=== PATIENT | male | born 1950 | race African-American/Black ===

== ENCOUNTER 2016-08-17 01:07 | Inpatient (IN) | payer MEDICARE, MEDICAID ==
[2016-08-17] VITALS (7 sets, daily range): BP systolic 110–147; BP diastolic 68–95
[~2016-08-17] VITALS: Ht 180.3 cm; Wt 73.9 kg
[~2016-08-17 01:07] MED LIST: AMLO10TA2 PO; ASPI-482 PO; LISI40TA PO; LOSA50TA2 PO
--- NOTE | 2016-08-17 01:47 | PHYS DOC ---
Past Medical History Past Medical History: Hypertension, Other Additional Past Medical Histor: pituiatary brain tumor, bradycardia, cervical spinalstenosis, hemorroids. Past Surgical History: Hip Replacement, Other Additional Past Surgical Histo: laminectomy with plate fusion cervical, hernia repair Smoking: Cigarettes Alcohol Use: Sober (quit 1 month ago) Drug Use: None Adult General Chief Complaint Chief Complaint: NEURO SYMPTOMS/DEFICITS HPI HPI Patient is a 66 year old male who presents with 2 days of right-sided numbness and right hand weakness. He states symptoms have a constant baseline with fluctuating intensity. He also describes bilateral blurry vision. He states he had mild right-sided head pressure tonight with associated difficulty swallowing , but this is currently resolved. He denies dizziness, tingling, nausea or vomiting, fever or chills, diarrhea, neck pain, head trauma, falls, abnormal coordination. Review of Systems Review of Systems Constitutional: Denies fever or chills [] Eyes: Denies change in visual acuity, redness, or eye pain [] HENT: Denies nasal congestion or sore throat [] Respiratory: Denies cough or shortness of breath [] Cardiovascular: No additional information not addressed in HPI [] GI: Denies abdominal pain, nausea, vomiting, bloody stools or diarrhea [] : Denies dysuria or hematuria [] Musculoskeletal: Denies back pain or joint pain [] Integument: Denies rash or skin lesions [] Neurologic: Denies coordination changes [] Endocrine: Denies polyuria or polydipsia [] Current Medications Current Medications Current Medications Medications (Trade) Dose Ordered Sig/Alexandra Start Time Stop Time Status Last Admin Dose Admin Aspirin (Yasmin Aspirin) 325 mg 1X ONCE 08/17/16 02:45 08/17/16 02:46 UNV Allergies Allergies Allergies Coded Allergies Type Severity Reaction Last Updated Verified codeine Allergy Intermediate 05/23/15 No morphine Allergy Intermediate 05/23/15 No ciprofloxacin Adverse Reaction Intermediate facial numbness 05/23/15 No Physical Exam Physical Exam Constitutional: Well developed, well nourished, no acute distress, non-toxic appearance. [] HENT: Normocephalic, atraumatic, bilateral external ears normal, oropharynx moist, no oral exudates, nose normal. [] Eyes: PERRLA, EOMI. [] Neck: Normal range of motion, supple. [] Cardiovascular:Heart rate regular rhythm [] Lungs & Thorax: Bilateral breath sounds clear to auscultation [] Abdomen: Bowel sounds normal, soft, no tenderness. [] Skin: Warm, dry, no erythema, no rash. [] Back: No tenderness, no CVA tenderness. [] Extremities: ROM intact, no edema. [] Neurologic: Arousal - alert and cooperative, A&O x 3 Speech - regular rate, volume and tone Language: fluent and spontaneous speech CN 2: PERRL CN 3, 4, 6: EOM intact, no nystagmus CN 5: Diminished sensation on the right compared to left to light touch CN 7: No facial droop CN 8: Equal hearing to finger rub CN 9/10: Intact CN 11: Normal shoulder shrug bilaterally CN 12: Tongue midline Motor exam: Bilateral upper and lower extremities with normal tone, 5/5 strength. No pronator drift. Sensory exam: Diminished sensation on the right compared to the left to light touch Coordination: Finger to nose normal Gait: not tested. Psychologic: Affect normal, judgement normal, mood normal. [] Current Patient Data Vital Signs Vital Signs Date Time Temp Pulse Resp B/P Pulse Ox O2 Delivery O2 Flow Rate FiO2 08/17/16 01:49 62 18 142/85 100 Room Air 08/17/16 01:15 98.4 98.4 Lab Values Laboratory Tests Test 08/17/16 01:17 08/17/16 01:58 White Blood Count 12.2x10^3/uL (4.0-11.0) H Red Blood Count 4.52x10^6/uL (4.30-5.70) Hemoglobin 14.5g/dL (13.0-17.5) Hematocrit 43.6% (39.0-53.0) Mean Corpuscular Volume 97fL (79-100) Mean Corpuscular Hemoglobin 32pg (25-35) Mean Corpuscular Hemoglobin Concent 33g/dL (31-37) Red Cell Distribution Width 13.5% (11.5-14.5) Platelet Count 398x10^3/uL (140-400) Neutrophils (%) (Auto) 63% (31-73) Lymphocytes (%) (Auto) 29% (24-48) Monocytes (%) (Auto) 7% (0-9) Eosinophils (%) (Auto) 1% (0-3) Basophils (%) (Auto) 1% (0-3) Neutrophils # (Auto) 7.7x10^3uL (1.8-7.7) Lymphocytes # (Auto) 3.5x10^3/uL (1.0-4.8) Monocytes # (Auto) 0.8x10^3/uL (0.0-1.1) Eosinophils # (Auto) 0.1x10^3/uL (0.0-0.7) Basophils # (Auto) 0.1x10^3/uL (0.0-0.2) Sodium Level 136mmol/L (136-145) Potassium Level 3.6mmol/L (3.5-5.1) Chloride Level 100mmol/L (98-107) Carbon Dioxide Level 27mmol/L (21-32) Anion Gap 9 (6-14) Blood Urea Nitrogen 10mg/dL (8-26) Creatinine 1.0mg/dL (0.7-1.3) Estimated GFR (Cockcroft-Gault) 90.5 Glucose Level 143mg/dL (70-99) H Calcium Level 9.5mg/dL (8.5-10.1) Urine Opiates Screen Neg (NEG) Urine Methadone Screen Neg (NEG) Urine Barbiturates Neg (NEG) Urine Phencyclidine Screen Neg (NEG) Urine Amphetamine/Methamphetamine Neg (NEG) Urine Benzodiazepines Screen Neg (NEG) Urine Cocaine Screen Neg (NEG) Urine Cannabinoids Screen Pos (NEG) Urine Ethyl Alcohol Neg (NEG) Laboratory Tests 08/17/16 01:17 Laboratory Tests 08/17/16 01:17 EKG EKG EKG as interpreted by me as normal sinus rhythm, rate 84, no ST-T changes, normal intervals, no ectopy Radiology/Procedures Radiology/Procedures Chest xray as interpreted by me with no acute cardiopulmonary disease process Head CT without contrast IMPRESSION Soft tissue density identified in the region of the pituitary gland likely known pituitary tumor grossly appears similar to prior exam. Otherwise no acute intracranial findings. Electronically signed by: Vlad Corado (Aug 17, 2016 02:07:20) Course & Med Decision Making Course & Med Decision Making Pertinent Labs and Imaging studies reviewed. (See chart for details) Workup is unremarkable. He passed his beside swallow exam. His condition is unchanged at this time with right sensory deficit only. His NIHSS is 1. He is not a thrombolysis candidate as his symptom onset is 2 days. Will admit for concern of acute ischemic stroke. Discussed case with Dr. Serrano, who will admit. Neurology consult placed. Ramirez Disclaimer Ramirez Disclaimer This electronic medical record was generated, in whole or in part, using a voice recognition dictation system. Departure Departure Impression: Primary Impression: Numbness on right side Additional Impression: Right hand weakness Disposition: ADMITTED INPATIENT Condition: STABLE Problem Qualifiers Singh CASTRO MD Aug 17, 2016 01:47
--- NOTE | 2016-08-17 02:09 | RAD ---
Examination: CT head without contrast. HISTORY History of right-sided weakness, numbness. COMPARISON 07/03/[address] images of the head was performed without contrast. Exposure: One or more of the following dose reduction technique were utilized for this examination: 1. Automated exposure control. 2.Adjustment of MA and /or KV according to patient size. 3. Use of iterative reconstruction technique. Findings: There is no evidence of midline shift. There is no acute intracranial bleed or extra-axial fluid collection identified. The islas-white matter differentiation is maintained. Mild bilateral periventricular white matter hypodensities likely chronic small vessel ischemic disease. There is soft tissue density identified in the region of the pituitary sella measuring 3.1 x 2.4 centimeters likely known pituitary tumor. The visualized paranasal sinuses, mastoid air cells are clear. IMPRESSION Soft tissue density identified in the region of the pituitary gland likely known pituitary tumor grossly appears similar to prior exam. Otherwise no acute intracranial findings. Electronically signed by: Vlad Corado (Aug 17, 2016 02:07:20)
[2016-08-17 02:15] LABS: BARBITURATES NEG (NEG); BENZODIAZEPINES NEG (NEG); CANNABINOIDS POS (NEG); COCAINE NEG (NEG); METHADONE NEG (NEG); OPIATES NEG (NEG); PHENCYCLIDINE NEG (NEG)
[2016-08-17 02:16] LABS: BASO # 0.1 x10^3/uL (0.0-0.2); BASO % 1 % (0-3); EOS % 1 % (0-3); HEMATOCRIT 43.6 % (39.0-53.0); HEMOGLOBIN 14.5 g/dL (13.0-17.5); LYMPH # 3.5 x10^3/uL (1.0-4.8); LYMPH % 29 % (24-48); MEAN CORPUSCULAR HEMOGLOBIN 32 pg (25-35); MEAN CORPUSCULAR HGB CONC 33 g/dL (31-37); MEAN CORPUSCULAR VOLUME 97 fL (79-100); MONO % 7 % (0-9); NEUT % 63 % (31-73); PLATELET COUNT 398 x10^3/uL (140-400); RED BLOOD COUNT 4.52 x10^6/uL (4.30-5.70); RED CELL DISTRIBUTION WIDTH 13.5 % (11.5-14.5); WHITE BLOOD COUNT 12.2 x10^3/uL (4.0-11.0)
[2016-08-17 02:17] LABS: ETHANOL, URINE NEG (NEG)
[2016-08-17 02:24] LABS: CALCIUM 9.5 mg/dL (8.5-10.1); GFR 90.5; POTASSIUM 3.6 mmol/L (3.5-5.1)
[2016-08-17] MEDS ORDERED: ASPIRIN 325 MG TABLET PO ONE (02:45)
[2016-08-17] MEDS ORDERED: ONDANSETRON PF 4 MG/2 ML VIAL. IV PRN ×2 (03:00→09:30)
[2016-08-17] MEDS ORDERED: ACETAMINOPHEN 325 MG TABLET. PO PRN ×2 (03:00→09:30)
--- NOTE | 2016-08-17 06:17 | EKG ---
[facility] [address] [place] [address] Test Date: 2016-08-17 Test Time: 01:15:03 Pat Name: AMPARO CHAVIS Department: Room: [facility] Gender: M Help Desk Representative: : 1950 Requested By: Singh CASTRO Order Number: [id number] Reading MD: James Daniel Measurements Intervals [place] Rate: 84 P: 35 DC: 182 QRS: 68 QRSD: 86 T: 57 QT: 340 QTc: 405 Interpretive Statements SINUS RHYTHM Electronically Signed On 08-20-2016 10:16:05 ADMITTING REPRESENTATIVE by James Daniel
--- NOTE | 2016-08-17 07:03 | RAD ---
Indication: Chest pain. Time of exam 0131 hours. Comparison is made with prior study 04/21/2015. FINDINGS: The heart size is normal. The lungs are clear. No pleural effusion or pneumothorax is identified. The pulmonary vascularity is normal. IMPRESSION: No acute abnormality detected.
--- NOTE | 2016-08-17 09:21 | PDOC1 ---
History and Physical Past Medical History Past Medical History PAST MEDICAL HISTORY: Hypertension, questionable atrial fibrillation and 2-cm brain tumor, pituitary PAST SURGICAL HISTORY: Hernia, hemorrhoids, and cervical spine repair. PERSONAL HISTORY: Active smoker and alcohol two pints every two days or three days. Drug abuse, marijuana. CURRENT MEDICATIONS: Reviewed and reconciled.Medication reconciliation was done. SEE MRAD ALLERGIES: Codeine, morphine, and ciprofloxacin. Cardiovascular: HTN Pulmonary: No pertinent hx CENTRAL NERVOUS SYSTEM: Other GI: Hemorrhoids Heme/Onc: No pertinent hx Hepatobiliary: No pertinent hx Psych: No pertinent hx Rheumatologic: No pertinent hx Infectious disease: No pertinent hx Renal/: No pertinent hx Endocrine: No pertinent hx Past Surgical History Past Surgical History: Total hip replacement, Other Family History Family History: Coronary Artery Disease, Diabetes, Other Social History Smoke: <1 pack per day ALCOHOL: occassional Drugs: Marijuana Current Problem List Problem List Problems Medical Problems: (1) Numbness on right side Status: Acute (2) Right hand weakness Status: Acute Current Medications Current Medications Current Medications Medications (Trade) Dose Ordered Sig/Alxeandra Start Time Stop Time Status Last Admin Dose Admin Acetaminophen (Tylenol) 650 mg PRN Q4HRS PRN 08/17/16 03:00 08/18/16 02:59 Aspirin (Yasmin Aspirin) 325 mg 1X ONCE 08/17/16 02:45 08/17/16 02:46 DC 08/17/16 02:45 325 MG Ondansetron HCl (Zofran) 4 mg PRN Q8HRS PRN 08/17/16 03:00 08/18/16 02:59 Allergies Allergies Allergies Coded Allergies Type Severity Reaction Last Updated Verified codeine Allergy Intermediate 05/23/15 No morphine Allergy Intermediate 05/23/15 No ciprofloxacin Adverse Reaction Intermediate facial numbness 05/23/15 No ROS Review of System CONSTITUTIONAL: No fever or chills EYES: No recent changes SKIN: No rash or itching CARDIOVASCULAR: No chest pain, syncope, palpitations, or edema RESPIRATORY: No SOB or cough GASTROINTESTINAL: No nausea, vomiting or abdominal pain NEUROLOGICAL: headaches ENDOCRINE: No cold or heat intolerance GENITOURINARY: No urgency or frequency of urination MUSCULOSKELETAL: No back pain or joint pain LYMPHATICS: No enlarged lymph nodes PSYCHIATRIC: No anxiety or depression Physical Exam Physical Exam GEN.: No apparent distress. Alert and oriented. HEENT: Head is normocephalic, atraumatic NECK: Supple. no jvd LUNGS: Clear to auscultation. normal airflow HEART: RRR, S1, S2 present. Peripheral pulses intact ABDOMEN: Soft, nontender. Positive bowel sounds. EXTREMITIES: Without any cyanosis. NEUROLOGIC: Normal speech, normal tone PSYCHIATRIC: Normal affect, normal mood. SKIN: No ulcerations Vitals Vitals Vital Signs Date Time Temp Pulse Resp B/P Pulse Ox O2 Delivery O2 Flow Rate FiO2 08/17/16 07:00 97.9 51 18 125/71 98 Room Air 97.9 Labs Labs Laboratory Tests Test 08/17/16 01:17 08/17/16 01:58 White Blood Count 12.2x10^3/uL (4.0-11.0) Red Blood Count 4.52x10^6/uL (4.30-5.70) Hemoglobin 14.5g/dL (13.0-17.5) Hematocrit 43.6% (39.0-53.0) Mean Corpuscular Volume 97fL (79-100) Mean Corpuscular Hemoglobin 32pg (25-35) Mean Corpuscular Hemoglobin Concent 33g/dL (31-37) Red Cell Distribution Width 13.5% (11.5-14.5) Platelet Count 398x10^3/uL (140-400) Neutrophils (%) (Auto) 63% (31-73) Lymphocytes (%) (Auto) 29% (24-48) Monocytes (%) (Auto) 7% (0-9) Eosinophils (%) (Auto) 1% (0-3) Basophils (%) (Auto) 1% (0-3) Neutrophils # (Auto) 7.7x10^3uL (1.8-7.7) Lymphocytes # (Auto) 3.5x10^3/uL (1.0-4.8) Monocytes # (Auto) 0.8x10^3/uL (0.0-1.1) Eosinophils # (Auto) 0.1x10^3/uL (0.0-0.7) Basophils # (Auto) 0.1x10^3/uL (0.0-0.2) Sodium Level 136mmol/L (136-145) Potassium Level 3.6mmol/L (3.5-5.1) Chloride Level 100mmol/L (98-107) Carbon Dioxide Level 27mmol/L (21-32) Anion Gap 9 (6-14) Blood Urea Nitrogen 10mg/dL (8-26) Creatinine 1.0mg/dL (0.7-1.3) Estimated GFR (Cockcroft-Gault) 90.5 Glucose Level 143mg/dL (70-99) Calcium Level 9.5mg/dL (8.5-10.1) Urine Opiates Screen Neg (NEG) Urine Methadone Screen Neg (NEG) Urine Barbiturates Neg (NEG) Urine Phencyclidine Screen Neg (NEG) Urine Amphetamine/Methamphetamine Neg (NEG) Urine Benzodiazepines Screen Neg (NEG) Urine Cocaine Screen Neg (NEG) Urine Cannabinoids Screen Pos (NEG) Urine Ethyl Alcohol Neg (NEG) Laboratory Tests Test 08/17/16 01:17 08/17/16 01:58 White Blood Count 12.2x10^3/uL (4.0-11.0) Red Blood Count 4.52x10^6/uL (4.30-5.70) Hemoglobin 14.5g/dL (13.0-17.5) Hematocrit 43.6% (39.0-53.0) Mean Corpuscular Volume 97fL (79-100) Mean Corpuscular Hemoglobin 32pg (25-35) Mean Corpuscular Hemoglobin Concent 33g/dL (31-37) Red Cell Distribution Width 13.5% (11.5-14.5) Platelet Count 398x10^3/uL (140-400) Neutrophils (%) (Auto) 63% (31-73) Lymphocytes (%) (Auto) 29% (24-48) Monocytes (%) (Auto) 7% (0-9) Eosinophils (%) (Auto) 1% (0-3) Basophils (%) (Auto) 1% (0-3) Neutrophils # (Auto) 7.7x10^3uL (1.8-7.7) Lymphocytes # (Auto) 3.5x10^3/uL (1.0-4.8) Monocytes # (Auto) 0.8x10^3/uL (0.0-1.1) Eosinophils # (Auto) 0.1x10^3/uL (0.0-0.7) Basophils # (Auto) 0.1x10^3/uL (0.0-0.2) Sodium Level 136mmol/L (136-145) Potassium Level 3.6mmol/L (3.5-5.1) Chloride Level 100mmol/L (98-107) Carbon Dioxide Level 27mmol/L (21-32) Anion Gap 9 (6-14) Blood Urea Nitrogen 10mg/dL (8-26) Creatinine 1.0mg/dL (0.7-1.3) Estimated GFR (Cockcroft-Gault) 90.5 Glucose Level 143mg/dL (70-99) Calcium Level 9.5mg/dL (8.5-10.1) Urine Opiates Screen Neg (NEG) Urine Methadone Screen Neg (NEG) Urine Barbiturates Neg (NEG) Urine Phencyclidine Screen Neg (NEG) Urine Amphetamine/Methamphetamine Neg (NEG) Urine Benzodiazepines Screen Neg (NEG) Urine Cocaine Screen Neg (NEG) Urine Cannabinoids Screen Pos (NEG) Urine Ethyl Alcohol Neg (NEG) VTE Prophylaxis Ordered VTE Prophylaxis Devices: Yes VTE Pharmacological Prophylaxi: No FROYLAN PEACOCK MD Aug 17, 2016 09:21
[2016-08-17] MEDS ORDERED: hydrALAZINE 20 MG/ML VIAL. IVP PRN (09:30)
[2016-08-17] MEDS ORDERED: ALBUTEROL SULFATE 2.5 MG/3 ML NEBU. NEB PRN (09:30)
--- NOTE | 2016-08-17 10:06 | PDOC2 ---
ALANA DUBON ON SITE CONSTRUCTION SUPERINTENDENT 08/17/16 1006: CARDIAC CONSULT DATE OF CONSULT Date of Consult DATE: 08/17/16 TIME: 10:01 REASON FOR CONSULT Reason for Consult: palpitations REFERRING PHYSICIAN Referring Physician: Dr. Rollins SOURCE Source: Chart review, Patient HISTORY OF PRESENT ILLNESS HISTORY OF PRESENT ILLNESS This is a 66 yo male, with a h/o hypertension, who presented with complaints of right-sided numbness along with right hand weakness. Patient reports that he has recently had difficulties with bowel movements and has been constipated for the last 4-5 days. Two days ago, took Mag citrate without any relief. Had abdominal pain and pressure. [place] "disoriented and weak." Tried fleets enema. Had liquid stools but did not pass formed stool or obtain relief. Patient reports that her then developed right sided weakness along with right hand numbness and right-sided GATCIA. Patient denies any CP, palpitations, diaphoresis, or fevers. No recent orthopnea or LE edema. Had not been taking his antiHTN medications as prescribed due to feeling nauseated 2/2 constipation. Patient reports that he was able to have a significant bowel movement this morning and all symptoms have seem to have resolved. Home medications resumed and BP now well-controlled. PAST MEDICAL HISTORY Past Medical History Cardiovascular: HTN Pulmonary: No pertinent hx CENTRAL NERVOUS SYSTEM: Other (Pituitary tumor) GI: Hemorrhoids Heme/Onc: No pertinent hx Hepatobiliary: No pertinent hx Psych: No pertinent hx Musculoskeletal: Osteoarthritis, Other (cervical stenosis) Rheumatologic: No pertinent hx Infectious disease: No pertinent hx ENT: No pertinent hx Renal/: No pertinent hx Endocrine: No pertinent hx Dermatology: No pertinent hx PAST SURGICAL HISTORY Past Surgical History Total hip replacement (left), Other (hemorrhoidectomy; cervical fusion and laminectomy) FAMILY HISTORY Family History Coronary Artery Disease (brother in his 40s, daughter 40s), Diabetes (father), Other (rheumatic heart disease father) SOCIAL HISTORY Smoke: No ALCOHOL: none Drugs: Marijuana Lives: with Family CURRENT MEDICATIONS CURRENT MEDICATIONS Current Medications Medications (Trade) Dose Ordered Sig/Alexandra Route PRN Reason Start Time Stop Time Status Last Admin Dose Admin Aspirin (Yasmin Aspirin) 325 mg 1X ONCE PO 08/17/16 02:45 08/17/16 02:46 DC 08/17/16 02:45 ALLERGIES ALLERGIES: Coded Allergies: codeine (Unverified Allergy, Intermediate, 05/23/15) morphine (Unverified Allergy, Intermediate, 05/23/15) ciprofloxacin (Unverified Adverse Reaction, Intermediate, facial numbness , 05/23/15) ROS Review of System 14 point ROS conducted with pertinent positives noted above in HPI PHYSICAL EXAM General: Alert, Oriented X3, Cooperative, No acute distress HEENT: Atraumatic, Mucous membr. moist/pink Lungs: Clear to auscultation, Normal air movement Heart: Regular rate, Normal S1, Normal S2 Abdomen: Normal bowel sounds, Soft, No tenderness Extremities: No edema, Normal pulses Skin: No significant lesion Neuro: Normal speech, Sensation intact Psych/Mental Status: Mental status NL, Mood NL MUSCULOSKELETAL: Full range of motion without pain VITALS VITALS Vital Signs Date Time Temp Pulse Resp B/P Pulse Ox O2 Delivery O2 Flow Rate FiO2 08/17/16 07:00 97.9 51 18 125/71 98 Room Air 97.9 LABS Lab: Laboratory Tests Test 08/17/16 01:17 08/17/16 01:58 White Blood Count 12.2x10^3/uL (4.0-11.0) Red Blood Count 4.52x10^6/uL (4.30-5.70) Hemoglobin 14.5g/dL (13.0-17.5) Hematocrit 43.6% (39.0-53.0) Mean Corpuscular Volume 97fL (79-100) Mean Corpuscular Hemoglobin 32pg (25-35) Mean Corpuscular Hemoglobin Concent 33g/dL (31-37) Red Cell Distribution Width 13.5% (11.5-14.5) Platelet Count 398x10^3/uL (140-400) Neutrophils (%) (Auto) 63% (31-73) Lymphocytes (%) (Auto) 29% (24-48) Monocytes (%) (Auto) 7% (0-9) Eosinophils (%) (Auto) 1% (0-3) Basophils (%) (Auto) 1% (0-3) Neutrophils # (Auto) 7.7x10^3uL (1.8-7.7) Lymphocytes # (Auto) 3.5x10^3/uL (1.0-4.8) Monocytes # (Auto) 0.8x10^3/uL (0.0-1.1) Eosinophils # (Auto) 0.1x10^3/uL (0.0-0.7) Basophils # (Auto) 0.1x10^3/uL (0.0-0.2) Sodium Level 136mmol/L (136-145) Potassium Level 3.6mmol/L (3.5-5.1) Chloride Level 100mmol/L (98-107) Carbon Dioxide Level 27mmol/L (21-32) Anion Gap 9 (6-14) Blood Urea Nitrogen 10mg/dL (8-26) Creatinine 1.0mg/dL (0.7-1.3) Estimated GFR (Cockcroft-Gault) 90.5 Glucose Level 143mg/dL (70-99) Calcium Level 9.5mg/dL (8.5-10.1) Urine Opiates Screen Neg (NEG) Urine Methadone Screen Neg (NEG) Urine Barbiturates Neg (NEG) Urine Phencyclidine Screen Neg (NEG) Urine Amphetamine/Methamphetamine Neg (NEG) Urine Benzodiazepines Screen Neg (NEG) Urine Cocaine Screen Neg (NEG) Urine Cannabinoids Screen Pos (NEG) Urine Ethyl Alcohol Neg (NEG) ECHOCARDIOGRAM ECHOCARDIOGRAM <Conclusion> The left ventricle is normal size. Left ventricle systolic function is normal. The Ejection Fraction is 50-55%. There is mild concentric left ventricular hypertrophy. The interatrial septum is intact with no evidence for an atrial septal defect or patent foramen ovale as noted on 2-D or Doppler imaging. Injection of bubbles documented no interatrial shunt. There is no significant aortic valvular stenosis. Doppler and Color Flow revealed no significant aortic regurgitation. Doppler and Color Flow revealed trace mitral regurgitation. Doppler and Color Flow revealed trace tricuspid regurgitation. The PA pressure was estimated at 25 mmHg. There is no evidence of significant pericardial effusion. DATE: 04/21/15 1636 ASSESSMENT/PLAN ASSESSMENT/PLAN 1. Hypertensive heart disease 2. Right-sided numbness/weakness- resolved 3. Constipation 4. Pituitary tumor 5. Substance use Recommendations Maintain blood pressure control. Discussed importance of compliance with medications 2 Gm Na diet Neurology workup pending November discharge from a cardiac standpoint and follow up with us as needed Problems: MARIUM ASHFORD MD 08/17/16 1823: CARDIAC CONSULT ALLERGIES ALLERGIES: Coded Allergies: codeine (Unverified Allergy, Intermediate, 05/23/15) morphine (Unverified Allergy, Intermediate, 05/23/15) ciprofloxacin (Unverified Adverse Reaction, Intermediate, facial numbness , 05/23/15) ASSESSMENT/PLAN ASSESSMENT/PLAN Pt. seen and examined. Agree with above LICENSED PSYCHOLOGIST Note. 66 y.o male with atypical CVA symptoms. On exam he has normal heart tones. No significant cardiac abnormalities on objective testing. Ok to DC from CV perspective. Thx for consult. Problems: ALANA DUBON APRN Aug 17, 2016 10:06 MARIUM ASHFORD MD Aug 17, 2016 18:23
[2016-08-17] MEDS: ASPIRIN ENTERIC COATED 81 MG TABLET.DR. PO SCH (10:47)
[2016-08-17] MEDS: AMLODIPINE BESYLATE 10 MG TABLET PO SCH (10:48)
[2016-08-17] MEDS: LISINOPRIL 40 MG TABLET. PO SCH (10:49)
[2016-08-17] MEDS ORDERED: INFLUENZA VAX SCREEN BY RX. MC PRN (12:00)
[2016-08-17] MEDS ORDERED: FLU VACC QUAD 2016-17 (36MOS+)/PF 0.5 ML SYRINGE. VAX IM ONE (14:00)
--- NOTE | 2016-08-17 14:52 | PDOC2 ---
NEUROLOGY CONSULT Date of Admission Date of Admission DATE: 08/17/16 TIME: 14:40 Reason for Consult Reason for Consult: IMPRESSION: Right side numbness and weakness x 1 day Blurred vision x 1 day Difficult swallow x 1 day Pituitary tumor. HTN Cannabinoids in system RECOMMENDATIONS/PLAN: Brain MRI w/wo contrast. ASA daily. Carotid a US + Doppler. Echo Fasting lipid panel. HISTORY OF THE PRESENT ILLNESS: 66-y-old AA male patient with above medicla diseases developed symptoms of blurred vision, right UE weakness and numbness and difficult swallow for 1 days before coming to the ER of [facility]. His symptoms improved but still persistent. His HCT suggested a pituitary tumor. No seizures. PAST MEDICAL HISTORY: Please see above. PAST SURGERY HISTORY: C-spine laminectomy and fusion. Hip replacement. ALLERGY: Unknown MEDICATIONS: Refer to [facility] FAMILY HISTORY: CAD DM SOCIAL HISTORY: Denies illicit drug use, but cannabinoids positive in system REVIEW OF SYSTEMS: Constitutional: No malnutrition, weight loss, cachexia. Head: No traumatic brain or head injury. Skin: No edema, or rash. Ear: No infection, tinnitus. Eyes: No vision loss or color blindness. Nose: No bleeding or purulent discharges. Hearing: No hearing decrease. Neck: No injury. Cardiac: HTN, HLD. Pulmonary: No COPD. GI: No GI ulcer, GI bleeding. Urinary/genital: UTI. Endocrinologic: No cousin face, craniofacial dysmorphism, polydactyly, goiter. Skeletomuscular: No muscular atrophy, deformity. Neurological: see HP. Psychiatric: marijuana. Otherwise, not [id number] review of systems. PHYSICAL EXAMINATION: General appearance is in subacute distress. HEENT: Normocephalic and nontraumatic. Eyes, nose, ears, and throat are unremarkable. Neck is supple. No lymphadenopathy. No bruits are heard over the carotid artery. No crepitus. Cardiovascular: S1, S2, regular rate and rhythm. Pulmonary: Clear to auscultation bilaterally. Abdomen: Bowel sounds are positive. Abdomen is soft, nontender, and nondistended. Extremities: No rash, lesions, or edema. No restriction of range of motion NEUROLOGICAL EXAMINATION: Awake. Oriented to time, place and person. PERRL. EOMI. CN: no focal findings. Muscle tone: within normal. Muscle strength: 5 DTR: 2 Plantar reflex: Flexor response bilaterally Gait: not examined in bed. Sensory exam: no abnormal findings. No acute cerebellar signs elicited. F-T-N test fine. Current Medications Current Medications Current Medications Aspirin (Yasmin Aspirin) 325 mg 1X ONCE PO Last administered on 08/17/16 02:45 ; Start 08/17/16 at 02:45; Stop 08/17/16 at 02:46; Status DC Ondansetron HCl (Zofran) 4 mg PRN Q8HRS PRN IV NAUSEA/VOMITING; Start 08/17/16 at 03:00; Stop 08/18/16 at 02:59 Acetaminophen (Tylenol) 650 mg PRN Q4HRS PRN PO FEVER; Start 08/17/16 at 03:00 ; Stop 08/18/16 at 02:59 Acetaminophen (Tylenol) 325 mg PRN Q6HRS PRN PO MILD PAIN / TEMP; Start at 09:30 Hydralazine HCl (Apresoline) 10 mg PRN Q4HRS PRN IVP ELEVATED BP, SEE COMMENTS ; Start 08/17/16 at 09:30 Ondansetron HCl (Zofran) 4 mg PRN Q8HRS PRN IV NAUSEA/VOMITING; Start 08/17/16 at 09:30 Albuterol Sulfate (Ventolin Neb Soln) 2.5 mg PRN Q4HRS PRN NEB SHORTNESS OF BREATH; Start 08/17/16 at 09:30 Amlodipine Besylate (Norvasc) 10 mg DAILY PO Last administered on 08/17/16 10: 48; Start 08/17/16 at 11:00 Aspirin (Ecotrin) 81 mg DAILY PO Last administered on 08/17/16 10:47; Start at 11:00 Lisinopril (Prinivil) 40 mg DAILY PO Last administered on 08/17/16 10:49; Start 08/17/16 at 11:00 Info (Do NOT chart on this placeholder) 1 each PRN 1X PRN MC SEE COMMENTS; Start 08/17/16 at 12:00; Status UNV Influenza Virus Vaccine Quadrival (Fluarix Quad [id number] Syringe) 0.5 ml ONCE ONCE VAX IM ; Start 08/17/16 at 14:00; Stop 08/17/16 at 14:01; Status DC Active Scripts Active Aspir 81 (Aspirin) 81 Mg Tablet.dr 1 Tab PO DAILY Amlodipine Besylate 10 Mg Tablet 10 Mg PO DAILY Reported Lisinopril 40 Mg Tablet 1 Tab PO DAILY Allergies Allergies: Coded Allergies: codeine (Unverified Allergy, Intermediate, 05/23/15) morphine (Unverified Allergy, Intermediate, 05/23/15) ciprofloxacin (Unverified Adverse Reaction, Intermediate, facial numbness , 05/23/15) Vitals VITALS Vital Signs Date Time Temp Pulse Resp B/P Pulse Ox O2 Delivery O2 Flow Rate FiO2 08/17/16 11:00 97.5 53 16 110/69 97 97.5 08/17/16 08:27 Room Air Labs Labs Laboratory Tests Test 08/17/16 01:17 08/17/16 01:58 White Blood Count 12.2x10^3/uL (4.0-11.0) Red Blood Count 4.52x10^6/uL (4.30-5.70) Hemoglobin 14.5g/dL (13.0-17.5) Hematocrit 43.6% (39.0-53.0) Mean Corpuscular Volume 97fL (79-100) Mean Corpuscular Hemoglobin 32pg (25-35) Mean Corpuscular Hemoglobin Concent 33g/dL (31-37) Red Cell Distribution Width 13.5% (11.5-14.5) Platelet Count 398x10^3/uL (140-400) Neutrophils (%) (Auto) 63% (31-73) Lymphocytes (%) (Auto) 29% (24-48) Monocytes (%) (Auto) 7% (0-9) Eosinophils (%) (Auto) 1% (0-3) Basophils (%) (Auto) 1% (0-3) Neutrophils # (Auto) 7.7x10^3uL (1.8-7.7) Lymphocytes # (Auto) 3.5x10^3/uL (1.0-4.8) Monocytes # (Auto) 0.8x10^3/uL (0.0-1.1) Eosinophils # (Auto) 0.1x10^3/uL (0.0-0.7) Basophils # (Auto) 0.1x10^3/uL (0.0-0.2) Sodium Level 136mmol/L (136-145) Potassium Level 3.6mmol/L (3.5-5.1) Chloride Level 100mmol/L (98-107) Carbon Dioxide Level 27mmol/L (21-32) Anion Gap 9 (6-14) Blood Urea Nitrogen 10mg/dL (8-26) Creatinine 1.0mg/dL (0.7-1.3) Estimated GFR (Cockcroft-Gault) 90.5 Glucose Level 143mg/dL (70-99) Calcium Level 9.5mg/dL (8.5-10.1) Urine Opiates Screen Neg (NEG) Urine Methadone Screen Neg (NEG) Urine Barbiturates Neg (NEG) Urine Phencyclidine Screen Neg (NEG) Urine Amphetamine/Methamphetamine Neg (NEG) Urine Benzodiazepines Screen Neg (NEG) Urine Cocaine Screen Neg (NEG) Urine Cannabinoids Screen Pos (NEG) Urine Ethyl Alcohol Neg (NEG) Laboratory Tests Test 08/17/16 01:17 08/17/16 01:58 White Blood Count 12.2x10^3/uL (4.0-11.0) Red Blood Count 4.52x10^6/uL (4.30-5.70) Hemoglobin 14.5g/dL (13.0-17.5) Hematocrit 43.6% (39.0-53.0) Mean Corpuscular Volume 97fL (79-100) Mean Corpuscular Hemoglobin 32pg (25-35) Mean Corpuscular Hemoglobin Concent 33g/dL (31-37) Red Cell Distribution Width 13.5% (11.5-14.5) Platelet Count 398x10^3/uL (140-400) Neutrophils (%) (Auto) 63% (31-73) Lymphocytes (%) (Auto) 29% (24-48) Monocytes (%) (Auto) 7% (0-9) Eosinophils (%) (Auto) 1% (0-3) Basophils (%) (Auto) 1% (0-3) Neutrophils # (Auto) 7.7x10^3uL (1.8-7.7) Lymphocytes # (Auto) 3.5x10^3/uL (1.0-4.8) Monocytes # (Auto) 0.8x10^3/uL (0.0-1.1) Eosinophils # (Auto) 0.1x10^3/uL (0.0-0.7) Basophils # (Auto) 0.1x10^3/uL (0.0-0.2) Sodium Level 136mmol/L (136-145) Potassium Level 3.6mmol/L (3.5-5.1) Chloride Level 100mmol/L (98-107) Carbon Dioxide Level 27mmol/L (21-32) Anion Gap 9 (6-14) Blood Urea Nitrogen 10mg/dL (8-26) Creatinine 1.0mg/dL (0.7-1.3) Estimated GFR (Cockcroft-Gault) 90.5 Glucose Level 143mg/dL (70-99) Calcium Level 9.5mg/dL (8.5-10.1) Urine Opiates Screen Neg (NEG) Urine Methadone Screen Neg (NEG) Urine Barbiturates Neg (NEG) Urine Phencyclidine Screen Neg (NEG) Urine Amphetamine/Methamphetamine Neg (NEG) Urine Benzodiazepines Screen Neg (NEG) Urine Cocaine Screen Neg (NEG) Urine Cannabinoids Screen Pos (NEG) Urine Ethyl Alcohol Neg (NEG) DAT FALK MD Aug 17, 2016 14:52
[2016-08-17 16:42] LABS: ALBUMIN 3.1 g/dL (3.4-5.0); CALCIUM 9.2 mg/dL (8.5-10.1); CREATININE 0.9 mg/dL (0.7-1.3); GFR 102.2; PHOSPHORUS 3.1 mg/dL (2.6-4.7); POTASSIUM 4.3 mmol/L (3.5-5.1)
[2016-08-17 16:57] LABS: FREE T4 0.95 ng/dL (0.76-1.46)
[2016-08-17] MEDS ORDERED: GADOBUTROL 7.5 MMOL/7.5 ML VIAL IV ONE (17:45)
--- NOTE | 2016-08-17 18:05 | HP ---
ADMIT DATE: 08/17/2016 CHIEF COMPLAINT: Right upper extremity, lower extremity numbness. HISTORY OF PRESENT ILLNESS: A 66-year-old -[place] male patient with prior history of hypertension, pituitary brain mass around 2 cm, presented to the ER with complaints of 2-day history of numbness in the right upper extremity and also he had intractable nausea, noted to have some blurry of vision. The patient denies any noncompliance with medications. His symptoms improved upon arrival to the floor. He denies any chest pain, shortness of breath, however, he has complaints of some palpitations for nearly 1-2 weeks. He is noticing increased racing of his heart, which has been sometimes regular and sometimes irregular. Today, he denies any symptoms such as palpitations, chest pain or shortness of breath. At the time of my examination, he is very comfortable. PAST MEDICAL HISTORY: Hypertension, pituitary tumor, bradycardia, cervical spinal stenosis, hip replacement, laminectomy. PERSONAL HISTORY: The patient smokes less than a pack a day. No alcohol abuse. No drug abuse. FAMILY HISTORY: Coronary artery disease. REVIEW OF SYSTEMS AND PHYSICAL EXAMINATION: Please see my electronic H and P. LABORATORY DATA: Sodium 136, potassium 3.6, chloride 100, carbon dioxide 27, gap is 9, BUN is 10, creatinine 1. Hematology: WBC 12.2, hemoglobin is 14.5, MCV 97, platelets 398. Toxicology: Opioids negative, bilirubin negative. Urine cannabinoids positive. IMAGING STUDIES: Chest x-ray: No acute abnormality noted. Head CT: Soft tissue density identified in the region of the pituitary gland, likely known pituitary tumor, grossly appears similar to prior exam, otherwise is no acute intracranial findings. PLAN: 1. At the time of examination, the patient's blood pressures were systolic more than 200, however, the patient denies any noncompliance with medications. At the time of my examination, his blood pressure is back to normal, however, he is having episodes of bradycardia which is asymptomatic. I will consult cardiology and given his pituitary mass, we will order some basic labs such as TSH, free T4 PTH, renal panel, ACTH and bilateral renal duplex ultrasound and prolactin levels. 2. I will consult neurosurgery for further recommendations as patient is complaining of some blurring of vision. 3. I will resume his home medications and p.r.n. hydralazine for blood pressure. 4. The patient has been educated about compliance and dietary restrictions for hypertension. 5. No DVT prophylaxis as the patient is actively mobile. FROYLAN PEACOCK MD DR: OMID/satinder JOB#: [id number] / [id number] MARNI
[2016-08-18 03:08] VITALS: BP 117/68
[2016-08-18 06:47] LABS: BASO % 1 % (0-3); EOS % 2 % (0-3); HEMATOCRIT 39.6 % (39.0-53.0); HEMOGLOBIN 13.2 g/dL (13.0-17.5); LYMPH # 2.3 x10^3/uL (1.0-4.8); LYMPH % 34 % (24-48); MEAN CORPUSCULAR HEMOGLOBIN 32 pg (25-35); MEAN CORPUSCULAR HGB CONC 33 g/dL (31-37); MEAN CORPUSCULAR VOLUME 95 fL (79-100); MONO % 8 % (0-9); NEUT % 57 % (31-73); PLATELET COUNT 383 x10^3/uL (140-400); RED BLOOD COUNT 4.18 x10^6/uL (4.30-5.70); RED CELL DISTRIBUTION WIDTH 13.6 % (11.5-14.5); WHITE BLOOD COUNT 6.7 x10^3/uL (4.0-11.0)
[2016-08-18 06:57] LABS: CALCIUM 9.1 mg/dL (8.5-10.1); CREATININE 0.8 mg/dL (0.7-1.3); POTASSIUM 4.4 mmol/L (3.5-5.1)
[2016-08-18 07:00] VITALS: BP 130/87
[2016-08-18] MEDS: ASPIRIN ENTERIC COATED 81 MG TABLET.DR. PO SCH (08:22)
[2016-08-18] MEDS: AMLODIPINE BESYLATE 10 MG TABLET PO SCH (08:23)
[2016-08-18] MEDS: LISINOPRIL 40 MG TABLET. PO SCH (08:24)
--- NOTE | 2016-08-18 08:49 | RAD ---
EXAM: Grayscale and color Doppler renal artery sonogram. HISTORY: Hypertension. TECHNIQUE: Grayscale and color Doppler sonographic imaging of the renal arteries with spectral waveform analysis was performed. COMPARISON: None. FINDINGS: The right kidney measures 9.6 cm [id number] and the left kidney measures 10.6 cm [id number]. There is no hydronephrosis. There is a 3.5 cm hypoechoic lesion along the superior aspect of the right kidney. The bladder is not assessed. The peak systolic velocities within the proximal, mid and distal right renal artery are 155 cm/s, 98 cm/s, and 90 cm/s, respectively. There are normal right renal artery to aorta velocity ratios. The peak systolic velocities within the proximal, mid and distal left renal artery are 356 cm/s, 304 cm/s, and 75 cm/s, respectively. There is an elevated left renal artery to aorta velocity ratio of 6.72. The bilateral renal veins are patent. The aorta is normal in caliber. IMPRESSION: 1. Elevated peak systolic velocities within the proximal and mid left renal artery, a component of which may be due to vessel tortuosity. This suggests greater than 60% stenosis. 2. No Doppler evidence of hemodynamically significant stenosis within the right renal artery. 3. 3.5 cm hypoechoic lesion superior to the right kidney, likely representing the right adrenal nodule demonstrated on a CT dated 07/03/2015. The left adrenal nodule is not seen sonographically. Please refer to the prior CT for characterization.
[2016-08-18 09:15] LABS: PROLACTIN 14.5 ng/mL (4.0-15.2)
--- NOTE | 2016-08-18 09:58 | RAD ---
EXAM: Brain MRI with and without contrast. HISTORY: Right sided numbness and weakness. TECHNIQUE: Multiplanar and multisequence magnetic resonance imaging of the brain was performed prior to and following the administration of 7.5 cc Gadovist intravenous contrast. COMPARISON: Head CT dated 08/17/2016] MRI dated 04/25/2010. FINDINGS: There is no restricted diffusion to suggest acute or subacute infarction. There is no susceptibility effect to suggest hemorrhage. There is a tiny focus of subtle septal effect within the right basal ganglia likely due to calcification. There is no mass effect or midline shift. There is no hydrocephalus. There are a few scattered focal areas of T2/FLAIR hyperintensity within the cerebral white matter and sulma, a nonspecific finding likely due to chronic small vessel disease. The orbits and paranasal sinuses are unremarkable. There is a small amount of fluid within the bilateral mastoid air cells. There is an enhancing sellar and suprasellar mass and enhancement of a thickened rightward deviated infundibulum. This mass measures 3.2 cm craniocaudally x 1.9 cm transversely x 2.0 cm anteroposteriorly. This mass extends into the left greater than right cavernous sinuses to abut the right cavernous ICA and partially encase the left ICA. These vessels maintain normal flow voids. There is superior deviation of the optic chiasm. There is instrumented fusion at the proximal cervical levels. IMPRESSION: 1. Large enhancing sellar and suprasellar mass extending to the left greater than right cavernous sinuses and resulting in deviation of a thickened enhancing infundibulum and optic chiasm. The imaging appearance favors a pituitary macroadenoma rather than alternative lesion such as a craniopharyngioma. Dedicated pituitary protocol MRI can be performed for better characterization. 2. Few scattered focal areas of signal change within the cerebral white matter and sulma, likely due to chronic small vessel disease.
--- NOTE | 2016-08-18 10:38 | PDOC ---
PROGRESS NOTES Chief Complaint Chief Complaint CC: right arm tingling A/P HTN urgency better. Left arm tinging resolved Adneral tumor 3cm incidental, right Macroadenoma pituitary 3 cm Plan IV Decadron q6hrs BP controlled NS consult pending, d/w Neurology, Renal duplex US resutls reviewed Consult Nephrology labs reviwed Echo old 2014 normal EF D/W Pt in details about all the test results, all questions answered, History of Present Illness History of Present Illness no fever no chills tingling in right upper extremities. Vitals Vitals Vital Signs Date Time Temp Pulse Resp B/P Pulse Ox O2 Delivery O2 Flow Rate FiO2 08/18/16 08:24 65 130/87 08/18/16 08:00 Room Air 08/18/16 07:00 97.7 18 100 97.7 Physical Exam General: Alert, Oriented X3, Cooperative, No acute distress Heart: Regular rate, Normal S1, Normal S2 Lungs: Clear, Wheezing Abdomen: Normal bowel sounds, Soft, No tenderness Extremities: No edema, Normal pulses Skin: No significant lesion Labs LABS Laboratory Tests Test 08/17/16 15:40 08/18/16 05:34 Sodium Level 141mmol/L (136-145) 141mmol/L (136-145) Potassium Level 4.3mmol/L (3.5-5.1) 4.4mmol/L (3.5-5.1) Chloride Level 106mmol/L (98-107) 104mmol/L (98-107) Carbon Dioxide Level 27mmol/L (21-32) 27mmol/L (21-32) Anion Gap 8 (6-14) 10 (6-14) Blood Urea Nitrogen 11mg/dL (8-26) 11mg/dL (8-26) Creatinine 0.9mg/dL (0.7-1.3) 0.8mg/dL (0.7-1.3) Estimated GFR (Cockcroft-Gault) 102.2 117.0 Glucose Level 97mg/dL (70-99) 84mg/dL (70-99) Calcium Level 9.2mg/dL (8.5-10.1) 9.1mg/dL (8.5-10.1) Ionized Calcium 1.22mmol/L (1.13-1.32) Phosphorus Level 3.1mg/dL (2.6-4.7) Albumin 3.1g/dL (3.4-5.0) Thyroid Stimulating Hormone (TSH) 1.315uIU/mL (0.358-3.74) Free Thyroxine 0.95ng/dL (0.76-1.46) Prolactin 14.5ng/mL (4.0-15.2) White Blood Count 6.7x10^3/uL (4.0-11.0) Red Blood Count 4.18x10^6/uL (4.30-5.70) Hemoglobin 13.2g/dL (13.0-17.5) Hematocrit 39.6% (39.0-53.0) Mean Corpuscular Volume 95fL (79-100) Mean Corpuscular Hemoglobin 32pg (25-35) Mean Corpuscular Hemoglobin Concent 33g/dL (31-37) Red Cell Distribution Width 13.6% (11.5-14.5) Platelet Count 383x10^3/uL (140-400) Neutrophils (%) (Auto) 57% (31-73) Lymphocytes (%) (Auto) 34% (24-48) Monocytes (%) (Auto) 8% (0-9) Eosinophils (%) (Auto) 2% (0-3) Basophils (%) (Auto) 1% (0-3) Neutrophils # (Auto) 3.8x10^3uL (1.8-7.7) Lymphocytes # (Auto) 2.3x10^3/uL (1.0-4.8) Monocytes # (Auto) 0.5x10^3/uL (0.0-1.1) Eosinophils # (Auto) 0.1x10^3/uL (0.0-0.7) Basophils # (Auto) 0.0x10^3/uL (0.0-0.2) Assessment and Plan Assessmemt and Plan Problems Medical Problems: (1) Numbness on right side Status: Acute (2) Right hand weakness Status: Acute Problems: Comment Review of Relevant I have reviewed the following items brent (where applicable) has been applied. Labs Laboratory Tests Test 08/17/16 01:17 08/17/16 01:58 08/17/16 15:40 08/18/16 05:34 White Blood Count 12.2x10^3/uL (4.0-11.0) 6.7x10^3/uL (4.0-11.0) Red Blood Count 4.52x10^6/uL (4.30-5.70) 4.18x10^6/uL (4.30-5.70) Hemoglobin 14.5g/dL (13.0-17.5) 13.2g/dL (13.0-17.5) Hematocrit 43.6% (39.0-53.0) 39.6% (39.0-53.0) Mean Corpuscular Volume 97fL (79-100) 95fL (79-100) Mean Corpuscular Hemoglobin 32pg (25-35) 32pg (25-35) Mean Corpuscular Hemoglobin Concent 33g/dL (31-37) 33g/dL (31-37) Red Cell Distribution Width 13.5% (11.5-14.5) 13.6% (11.5-14.5) Platelet Count 398x10^3/uL (140-400) 383x10^3/uL (140-400) Neutrophils (%) (Auto) 63% (31-73) 57% (31-73) Lymphocytes (%) (Auto) 29% (24-48) 34% (24-48) Monocytes (%) (Auto) 7% (0-9) 8% (0-9) Eosinophils (%) (Auto) 1% (0-3) 2% (0-3) Basophils (%) (Auto) 1% (0-3) 1% (0-3) Neutrophils # (Auto) 7.7x10^3uL (1.8-7.7) 3.8x10^3uL (1.8-7.7) Lymphocytes # (Auto) 3.5x10^3/uL (1.0-4.8) 2.3x10^3/uL (1.0-4.8) Monocytes # (Auto) 0.8x10^3/uL (0.0-1.1) 0.5x10^3/uL (0.0-1.1) Eosinophils # (Auto) 0.1x10^3/uL (0.0-0.7) 0.1x10^3/uL (0.0-0.7) Basophils # (Auto) 0.1x10^3/uL (0.0-0.2) 0.0x10^3/uL (0.0-0.2) Sodium Level 136mmol/L (136-145) 141mmol/L (136-145) 141mmol/L (136-145) Potassium Level 3.6mmol/L (3.5-5.1) 4.3mmol/L (3.5-5.1) 4.4mmol/L (3.5-5.1) Chloride Level 100mmol/L (98-107) 106mmol/L (98-107) 104mmol/L (98-107) Carbon Dioxide Level 27mmol/L (21-32) 27mmol/L (21-32) 27mmol/L (21-32) Anion Gap 9 (6-14) 8 (6-14) 10 (6-14) Blood Urea Nitrogen 10mg/dL (8-26) 11mg/dL (8-26) 11mg/dL (8-26) Creatinine 1.0mg/dL (0.7-1.3) 0.9mg/dL (0.7-1.3) 0.8mg/dL (0.7-1.3) Estimated GFR (Cockcroft-Gault) 90.5 102.2 117.0 Glucose Level 143mg/dL (70-99) 97mg/dL (70-99) 84mg/dL (70-99) Calcium Level 9.5mg/dL (8.5-10.1) 9.2mg/dL (8.5-10.1) 9.1mg/dL (8.5-10.1) Urine Opiates Screen Neg (NEG) Urine Methadone Screen Neg (NEG) Urine Barbiturates Neg (NEG) Urine Phencyclidine Screen Neg (NEG) Urine Amphetamine/Methamphetamine Neg (NEG) Urine Benzodiazepines Screen Neg (NEG) Urine Cocaine Screen Neg (NEG) Urine Cannabinoids Screen Pos (NEG) Urine Ethyl Alcohol Neg (NEG) Ionized Calcium 1.22mmol/L (1.13-1.32) Phosphorus Level 3.1mg/dL (2.6-4.7) Albumin 3.1g/dL (3.4-5.0) Thyroid Stimulating Hormone (TSH) 1.315uIU/mL (0.358-3.74) Free Thyroxine 0.95ng/dL (0.76-1.46) Prolactin 14.5ng/mL (4.0-15.2) Laboratory Tests Test 08/17/16 15:40 08/18/16 05:34 Sodium Level 141mmol/L (136-145) 141mmol/L (136-145) Potassium Level 4.3mmol/L (3.5-5.1) 4.4mmol/L (3.5-5.1) Chloride Level 106mmol/L (98-107) 104mmol/L (98-107) Carbon Dioxide Level 27mmol/L (21-32) 27mmol/L (21-32) Anion Gap 8 (6-14) 10 (6-14) Blood Urea Nitrogen 11mg/dL (8-26) 11mg/dL (8-26) Creatinine 0.9mg/dL (0.7-1.3) 0.8mg/dL (0.7-1.3) Estimated GFR (Cockcroft-Gault) 102.2 117.0 Glucose Level 97mg/dL (70-99) 84mg/dL (70-99) Calcium Level 9.2mg/dL (8.5-10.1) 9.1mg/dL (8.5-10.1) Ionized Calcium 1.22mmol/L (1.13-1.32) Phosphorus Level 3.1mg/dL (2.6-4.7) Albumin 3.1g/dL (3.4-5.0) Thyroid Stimulating Hormone (TSH) 1.315uIU/mL (0.358-3.74) Free Thyroxine 0.95ng/dL (0.76-1.46) Prolactin 14.5ng/mL (4.0-15.2) White Blood Count 6.7x10^3/uL (4.0-11.0) Red Blood Count 4.18x10^6/uL (4.30-5.70) Hemoglobin 13.2g/dL (13.0-17.5) Hematocrit 39.6% (39.0-53.0) Mean Corpuscular Volume 95fL (79-100) Mean Corpuscular Hemoglobin 32pg (25-35) Mean Corpuscular Hemoglobin Concent 33g/dL (31-37) Red Cell Distribution Width 13.6% (11.5-14.5) Platelet Count 383x10^3/uL (140-400) Neutrophils (%) (Auto) 57% (31-73) Lymphocytes (%) (Auto) 34% (24-48) Monocytes (%) (Auto) 8% (0-9) Eosinophils (%) (Auto) 2% (0-3) Basophils (%) (Auto) 1% (0-3) Neutrophils # (Auto) 3.8x10^3uL (1.8-7.7) Lymphocytes # (Auto) 2.3x10^3/uL (1.0-4.8) Monocytes # (Auto) 0.5x10^3/uL (0.0-1.1) Eosinophils # (Auto) 0.1x10^3/uL (0.0-0.7) Basophils # (Auto) 0.0x10^3/uL (0.0-0.2) Medications Current Medications Aspirin (Yasmin Aspirin) 325 mg 1X ONCE PO Last administered on 08/17/16t 02:45 ; Start 08/17/16 at 02:45; Stop 08/17/16 at 02:46; Status DC Ondansetron HCl (Zofran) 4 mg PRN Q8HRS PRN IV NAUSEA/VOMITING; Start 08/17/16 at 03:00; Stop 08/18/16 at 02:59; Status DC Acetaminophen (Tylenol) 650 mg PRN Q4HRS PRN PO FEVER; Start 08/17/16 at 03:00 ; Stop 08/18/16 at 02:59; Status DC Acetaminophen (Tylenol) 325 mg PRN Q6HRS PRN PO MILD PAIN / TEMP; Start at 09:30 Hydralazine HCl (Apresoline) 10 mg PRN Q4HRS PRN IVP ELEVATED BP, SEE COMMENTS ; Start 08/17/16 at 09:30 Ondansetron HCl (Zofran) 4 mg PRN Q8HRS PRN IV NAUSEA/VOMITING; Start 08/17/16 at 09:30 Albuterol Sulfate (Ventolin Neb Soln) 2.5 mg PRN Q4HRS PRN NEB SHORTNESS OF BREATH; Start 08/17/16 at 09:30 Amlodipine Besylate (Norvasc) 10 mg DAILY PO Last administered on 08/18/16 08: 23; Start 08/17/16 at 11:00 Aspirin (Ecotrin) 81 mg DAILY PO Last administered on 08/18/16 08:22; Start at 11:00 Lisinopril (Prinivil) 40 mg DAILY PO Last administered on 08/18/16 08:24; Start 08/17/16 at 11:00 Info (Do NOT chart on this placeholder) 1 each PRN 1X PRN MC SEE COMMENTS; Start 08/17/16 at 12:00; Status UNV Influenza Virus Vaccine Quadrival (Fluarix Quad 1107-5999 Syringe) 0.5 ml ONCE ONCE VAX IM Last administered on 08/17/16 21:51; Start 08/17/16 at 14:00; Stop 08/17/16 at 14:01; Status DC Gadobutrol (Gadavist) 7.5 mmol 1X ONCE IV Last administered on 08/17/16 17:45 ; Start 08/17/16 at 17:45; Stop 08/17/16 at 17:46; Status DC Active Scripts Active Aspir 81 (Aspirin) 81 Mg Tablet. 1 Tab PO DAILY Amlodipine Besylate 10 Mg Tablet 10 Mg PO DAILY Reported Lisinopril 40 Mg Tablet 1 Tab PO DAILY Vitals/I & O Vital Sign - Last 24 Hours 08/17/16 08/17/16 08/17/16 08/17/16 10:48 10:49 11:00 15:00 Temp 97.5 97.5 97.5 97.5 Pulse 74 74 53 52 Resp 16 16 B/P 125/71 125/71 110/69 126/75 Pulse Ox 97 100 08/17/16 08/17/16 08/17/16 08/18/16 20:00 20:26 23:04 03:08 Temp 97.9 98.8 97.9 97.9 98.8 97.9 Pulse 51 52 48 Resp 20 20 20 B/P 121/68 144/73 117/68 Pulse Ox 100 99 100 O2 Delivery Room Air Room Air Room Air Room Air 08/18/16 08/18/16 08/18/16 08/18/16 07:00 08:00 08:23 08:24 Temp 97.7 97.7 Pulse 65 65 65 Resp 18 B/P 130/87 130/87 130/87 Pulse Ox 100 O2 Delivery Room Air Room Air Intake and Output 08/17/16 08/17/16 08/18/16 15:00 23:00 07:00 Intake Total 330 ml Output Total 250 ml 250 ml Balance -250 ml 80 ml FROYLAN PEACOCK MD Aug 18, 2016 10:38
[2016-08-18 11:00] VITALS: BP 145/75
[2016-08-18 14:52] VITALS: BP 137/78
[2016-08-18 15:14] LABS: PTH INTACT 36 pg/mL (15-65)
[2016-08-18] MEDS: DEXAMETHASONE SOD PHOS 4 MG/ML VIAL IV SCH ×2 (15:53→22:44)
--- NOTE | 2016-08-18 17:55 | PDOC ---
PROGRESS NOTES Assessment Problems Medical Problems: (1) Numbness on right side Status: Acute (2) Right hand weakness Status: Acute Problems: Plan Patient is a 66-year-old -[place] man presented with complaints of bloody vision, right-sided weakness, numbness MRI brain revealed IMPRESSION: 1. Large enhancing sellar and suprasellar mass extending to the left greater than right cavernous sinuses and resulting in deviation of a thickened enhancing infundibulum and optic chiasm. The imaging appearance favors a pituitary macroadenoma rather than alternative lesion such as a craniopharyngioma. Dedicated pituitary protocol MRI can be performed for better characterization. 2. Few scattered focal areas of signal change within the cerebral white matter and sulma, likely due to chronic small vessel disease. Head CT suggested pituitary tumor Currently the neurosurgery recommendations pending On Decadron. Aspirin for secondary stroke duration carotid doppler Dopplers Echo pending. Statin Continue medical management Subjective No complaint of chest pain shortness of breath nausea vomiting complain of blurry vision Objective Vital Signs Date Time Temp Pulse Resp B/P Pulse Ox O2 Delivery O2 Flow Rate FiO2 08/18/16 14:52 98.4 60 18 137/78 97 Room Air 98.4 Intake and Output 08/18/16 07:00 Intake Total 330 ml Output Total 500 ml Balance -170 ml Intake Oral 330 ml Output Urine Total 500 ml PHYSICAL EXAM REVIEW OF SYSTEMS: Constitutional: No malnutrition, weight loss, cachexia. Head: No traumatic brain or head injury. Skin: No edema, or rash. Ear: No infection, tinnitus. Eyes: Blurry vision Nose: No bleeding or purulent discharges. Hearing: No hearing decrease. Neck: No injury. Cardiac: HTN, HLD. Pulmonary: No COPD. GI: No GI ulcer, GI bleeding. PHYSICAL EXAMINATION: General appearance is in acute distress. HEENT: Normocephalic and nontraumatic. Eyes, nose, ears, and throat are unremarkable. Neck is supple. No lymphadenopathy. No crepitus. Cardiovascular: S1, S2, regular rate and rhythm. Pulmonary: Clear to auscultation bilaterally. Abdomen: Bowel sounds are positive. Abdomen is soft, nontender, and nondistended. Extremities: No rash, lesions, or edema. No restriction of range of motion NEUROLOGICAL EXAMINATION: Alert Oriented to time, place and person. PERRL. EOMI. CN: no focal findings. Muscle tone: within normal. Muscle strength: 5 DTR: 2 Plantar reflex: Flexor response bilaterally Gait: not examined in bed. Sensory exam: no abnormal findings. No obvious cerebellar signs elicited. Review of Relevant I have reviewed the following items brent (where applicable) has been applied. Labs Laboratory Tests Test 08/17/16 01:17 08/17/16 01:58 08/17/16 15:40 08/18/16 05:34 White Blood Count 12.2x10^3/uL (4.0-11.0) 6.7x10^3/uL (4.0-11.0) Red Blood Count 4.52x10^6/uL (4.30-5.70) 4.18x10^6/uL (4.30-5.70) Hemoglobin 14.5g/dL (13.0-17.5) 13.2g/dL (13.0-17.5) Hematocrit 43.6% (39.0-53.0) 39.6% (39.0-53.0) Mean Corpuscular Volume 97fL (79-100) 95fL (79-100) Mean Corpuscular Hemoglobin 32pg (25-35) 32pg (25-35) Mean Corpuscular Hemoglobin Concent 33g/dL (31-37) 33g/dL (31-37) Red Cell Distribution Width 13.5% (11.5-14.5) 13.6% (11.5-14.5) Platelet Count 398x10^3/uL (140-400) 383x10^3/uL (140-400) Neutrophils (%) (Auto) 63% (31-73) 57% (31-73) Lymphocytes (%) (Auto) 29% (24-48) 34% (24-48) Monocytes (%) (Auto) 7% (0-9) 8% (0-9) Eosinophils (%) (Auto) 1% (0-3) 2% (0-3) Basophils (%) (Auto) 1% (0-3) 1% (0-3) Neutrophils # (Auto) 7.7x10^3uL (1.8-7.7) 3.8x10^3uL (1.8-7.7) Lymphocytes # (Auto) 3.5x10^3/uL (1.0-4.8) 2.3x10^3/uL (1.0-4.8) Monocytes # (Auto) 0.8x10^3/uL (0.0-1.1) 0.5x10^3/uL (0.0-1.1) Eosinophils # (Auto) 0.1x10^3/uL (0.0-0.7) 0.1x10^3/uL (0.0-0.7) Basophils # (Auto) 0.1x10^3/uL (0.0-0.2) 0.0x10^3/uL (0.0-0.2) Sodium Level 136mmol/L (136-145) 141mmol/L (136-145) 141mmol/L (136-145) Potassium Level 3.6mmol/L (3.5-5.1) 4.3mmol/L (3.5-5.1) 4.4mmol/L (3.5-5.1) Chloride Level 100mmol/L (98-107) 106mmol/L (98-107) 104mmol/L (98-107) Carbon Dioxide Level 27mmol/L (21-32) 27mmol/L (21-32) 27mmol/L (21-32) Anion Gap 9 (6-14) 8 (6-14) 10 (6-14) Blood Urea Nitrogen 10mg/dL (8-26) 11mg/dL (8-26) 11mg/dL (8-26) Creatinine 1.0mg/dL (0.7-1.3) 0.9mg/dL (0.7-1.3) 0.8mg/dL (0.7-1.3) Estimated GFR (Cockcroft-Gault) 90.5 102.2 117.0 Glucose Level 143mg/dL (70-99) 97mg/dL (70-99) 84mg/dL (70-99) Calcium Level 9.5mg/dL (8.5-10.1) 9.2mg/dL (8.5-10.1) 9.1mg/dL (8.5-10.1) Urine Opiates Screen Neg (NEG) Urine Methadone Screen Neg (NEG) Urine Barbiturates Neg (NEG) Urine Phencyclidine Screen Neg (NEG) Urine Amphetamine/Methamphetamine Neg (NEG) Urine Benzodiazepines Screen Neg (NEG) Urine Cocaine Screen Neg (NEG) Urine Cannabinoids Screen Pos (NEG) Urine Ethyl Alcohol Neg (NEG) Estimated GFR (Non- 96 (>59) Ionized Calcium 1.22mmol/L (1.13-1.32) Phosphorus Level 3.1mg/dL (2.6-4.7) Albumin 3.1g/dL (3.4-5.0) EGFR 111 (>59) Thyroid Stimulating Hormone (TSH) 1.315uIU/mL (0.358-3.74) Free Thyroxine 0.95ng/dL (0.76-1.46) Prolactin 14.5ng/mL (4.0-15.2) PTH (Intact) Specimen Description Comment (.) Parathyroid Hormone (Intact) 36pg/mL (15-65) Calcium (PTH Intact) 9.3mg/dL (8.6-10.2) Creatinine (PTH Intact) 0.74mg/dL (0.76-1.27) Phosphorus (PTH Intact) 3.2mg/dL (2.5-4.5) Laboratory Tests Test 08/18/16 05:34 White Blood Count 6.7x10^3/uL (4.0-11.0) Red Blood Count 4.18x10^6/uL (4.30-5.70) Hemoglobin 13.2g/dL (13.0-17.5) Hematocrit 39.6% (39.0-53.0) Mean Corpuscular Volume 95fL (79-100) Mean Corpuscular Hemoglobin 32pg (25-35) Mean Corpuscular Hemoglobin Concent 33g/dL (31-37) Red Cell Distribution Width 13.6% (11.5-14.5) Platelet Count 383x10^3/uL (140-400) Neutrophils (%) (Auto) 57% (31-73) Lymphocytes (%) (Auto) 34% (24-48) Monocytes (%) (Auto) 8% (0-9) Eosinophils (%) (Auto) 2% (0-3) Basophils (%) (Auto) 1% (0-3) Neutrophils # (Auto) 3.8x10^3uL (1.8-7.7) Lymphocytes # (Auto) 2.3x10^3/uL (1.0-4.8) Monocytes # (Auto) 0.5x10^3/uL (0.0-1.1) Eosinophils # (Auto) 0.1x10^3/uL (0.0-0.7) Basophils # (Auto) 0.0x10^3/uL (0.0-0.2) Sodium Level 141mmol/L (136-145) Potassium Level 4.4mmol/L (3.5-5.1) Chloride Level 104mmol/L (98-107) Carbon Dioxide Level 27mmol/L (21-32) Anion Gap 10 (6-14) Blood Urea Nitrogen 11mg/dL (8-26) Creatinine 0.8mg/dL (0.7-1.3) Estimated GFR (Cockcroft-Gault) 117.0 Glucose Level 84mg/dL (70-99) Calcium Level 9.1mg/dL (8.5-10.1) Medications Current Medications Aspirin ([employer] Aspirin) 325 mg 1X ONCE PO Last administered on 08/17/16t 02:45 ; Start 08/17/16 at 02:45; Stop 08/17/16 at 02:46; Status DC Ondansetron HCl (Zofran) 4 mg PRN Q8HRS PRN IV NAUSEA/VOMITING; Start 08/17/16 at 03:00; Stop 08/18/16 at 02:59; Status DC Acetaminophen (Tylenol) 650 mg PRN Q4HRS PRN PO FEVER; Start 08/17/16 at 03:00 ; Stop 08/18/16 at 02:59; Status DC Acetaminophen (Tylenol) 325 mg PRN Q6HRS PRN PO MILD PAIN / TEMP; Start at 09:30 Hydralazine HCl (Apresoline) 10 mg PRN Q4HRS PRN IVP ELEVATED BP, SEE COMMENTS ; Start 08/17/16 at 09:30 Ondansetron HCl (Zofran) 4 mg PRN Q8HRS PRN IV NAUSEA/VOMITING; Start 08/17/16 at 09:30 Albuterol Sulfate (Ventolin Neb Soln) 2.5 mg PRN Q4HRS PRN NEB SHORTNESS OF BREATH; Start 08/17/16 at 09:30 Amlodipine Besylate (Norvasc) 10 mg DAILY PO Last administered on 08/18/16 08: 23; Start 08/17/16 at 11:00 Aspirin (Ecotrin) 81 mg DAILY PO Last administered on 08/18/16 08:22; Start at 11:00 Lisinopril (Prinivil) 40 mg DAILY PO Last administered on 08/18/16 08:24; Start 08/17/16 at 11:00 Info (Do NOT chart on this placeholder) 1 each PRN 1X PRN MC SEE COMMENTS; Start 08/17/16 at 12:00; Status UNV Influenza Virus Vaccine Quadrival (Fluarix Quad [id number] Syringe) 0.5 ml ONCE ONCE VAX IM Last administered on 08/17/16 21:51; Start 08/17/16 at 14:00; Stop 08/17/16 at 14:01; Status DC Gadobutrol (Gadavist) 7.5 mmol 1X ONCE IV Last administered on 08/17/16 17:45 ; Start 08/17/16 at 17:45; Stop 08/17/16 at 17:46; Status DC Dexamethasone Sodium Phosphate (Decadron) 4 mg Q6HRS IV Last administered on 15:53; Start 08/18/16 at 16:00 Active Scripts Active Aspir 81 (Aspirin) 81 Mg Tablet. 1 Tab PO DAILY Amlodipine Besylate 10 Mg Tablet 10 Mg PO DAILY Reported Lisinopril 40 Mg Tablet 1 Tab PO DAILY Vitals/I & O Vital Sign - Last 24 Hours 08/17/16 08/17/16 08/17/16 08/18/16 20:00 20:26 23:04 03:08 Temp 97.9 98.8 97.9 97.9 98.8 97.9 Pulse 51 52 48 Resp 20 20 20 B/P 121/68 144/73 117/68 Pulse Ox 100 99 100 O2 Delivery Room Air Room Air Room Air Room Air 08/18/16 08/18/16 08/18/16 08/18/16 07:00 08:00 08:23 08:24 Temp 97.7 97.7 Pulse 65 65 65 Resp 18 B/P 130/87 130/87 130/87 Pulse Ox 100 O2 Delivery Room Air Room Air 08/18/16 08/18/16 11:00 14:52 Temp 98.1 98.4 98.1 98.4 Pulse 62 60 Resp 18 18 B/P 145/75 137/78 Pulse Ox 99 97 O2 Delivery Room Air Room Air Intake and Output 08/17/16 08/17/16 08/18/16 15:00 23:00 07:00 Intake Total 330 ml Output Total 250 ml 250 ml Balance -250 ml 80 ml OBDULIO GRAHAM MD Aug 18, 2016 17:55
[2016-08-18 19:05] VITALS: BP 134/90
--- NOTE | 2016-08-18 22:58 | PDOC ---
PROGRESS NOTES Subjective Subjective patient seen at 1700 slowly enlarging pituitary mass C/O blurry vision, no visual field cuts will obtain MRI with pituitary protocol and MRA will need ophthalmology eval Objective Objective Vital Signs Date Time Temp Pulse Resp B/P Pulse Ox O2 Delivery O2 Flow Rate FiO2 08/18/16 20:00 Room Air 08/18/16 19:05 98.4 95 16 134/90 96 98.4 Intake and Output 08/18/16 07:00 Intake Total 330 ml Output Total 500 ml Balance -170 ml Intake Oral 330 ml Output Urine Total 500 ml Assessment Assessment Problems Medical Problems: (1) Numbness on right side Status: Acute (2) Right hand weakness Status: Acute Comment Review of Relevant I have reviewed the following items brent (where applicable) has been applied. Labs Laboratory Tests Test 08/17/16 01:17 08/17/16 01:58 08/17/16 15:40 08/18/16 05:34 White Blood Count 12.2x10^3/uL (4.0-11.0) 6.7x10^3/uL (4.0-11.0) Red Blood Count 4.52x10^6/uL (4.30-5.70) 4.18x10^6/uL (4.30-5.70) Hemoglobin 14.5g/dL (13.0-17.5) 13.2g/dL (13.0-17.5) Hematocrit 43.6% (39.0-53.0) 39.6% (39.0-53.0) Mean Corpuscular Volume 97fL (79-100) 95fL (79-100) Mean Corpuscular Hemoglobin 32pg (25-35) 32pg (25-35) Mean Corpuscular Hemoglobin Concent 33g/dL (31-37) 33g/dL (31-37) Red Cell Distribution Width 13.5% (11.5-14.5) 13.6% (11.5-14.5) Platelet Count 398x10^3/uL (140-400) 383x10^3/uL (140-400) Neutrophils (%) (Auto) 63% (31-73) 57% (31-73) Lymphocytes (%) (Auto) 29% (24-48) 34% (24-48) Monocytes (%) (Auto) 7% (0-9) 8% (0-9) Eosinophils (%) (Auto) 1% (0-3) 2% (0-3) Basophils (%) (Auto) 1% (0-3) 1% (0-3) Neutrophils # (Auto) 7.7x10^3uL (1.8-7.7) 3.8x10^3uL (1.8-7.7) Lymphocytes # (Auto) 3.5x10^3/uL (1.0-4.8) 2.3x10^3/uL (1.0-4.8) Monocytes # (Auto) 0.8x10^3/uL (0.0-1.1) 0.5x10^3/uL (0.0-1.1) Eosinophils # (Auto) 0.1x10^3/uL (0.0-0.7) 0.1x10^3/uL (0.0-0.7) Basophils # (Auto) 0.1x10^3/uL (0.0-0.2) 0.0x10^3/uL (0.0-0.2) Sodium Level 136mmol/L (136-145) 141mmol/L (136-145) 141mmol/L (136-145) Potassium Level 3.6mmol/L (3.5-5.1) 4.3mmol/L (3.5-5.1) 4.4mmol/L (3.5-5.1) Chloride Level 100mmol/L (98-107) 106mmol/L (98-107) 104mmol/L (98-107) Carbon Dioxide Level 27mmol/L (21-32) 27mmol/L (21-32) 27mmol/L (21-32) Anion Gap 9 (6-14) 8 (6-14) 10 (6-14) Blood Urea Nitrogen 10mg/dL (8-26) 11mg/dL (8-26) 11mg/dL (8-26) Creatinine 1.0mg/dL (0.7-1.3) 0.9mg/dL (0.7-1.3) 0.8mg/dL (0.7-1.3) Estimated GFR (Cockcroft-Gault) 90.5 102.2 117.0 Glucose Level 143mg/dL (70-99) 97mg/dL (70-99) 84mg/dL (70-99) Calcium Level 9.5mg/dL (8.5-10.1) 9.2mg/dL (8.5-10.1) 9.1mg/dL (8.5-10.1) Urine Opiates Screen Neg (NEG) Urine Methadone Screen Neg (NEG) Urine Barbiturates Neg (NEG) Urine Phencyclidine Screen Neg (NEG) Urine Amphetamine/Methamphetamine Neg (NEG) Urine Benzodiazepines Screen Neg (NEG) Urine Cocaine Screen Neg (NEG) Urine Cannabinoids Screen Pos (NEG) Urine Ethyl Alcohol Neg (NEG) Estimated GFR (Non- 96 (>59) Ionized Calcium 1.22mmol/L (1.13-1.32) Phosphorus Level 3.1mg/dL (2.6-4.7) Albumin 3.1g/dL (3.4-5.0) EGFR 111 (>59) Thyroid Stimulating Hormone (TSH) 1.315uIU/mL (0.358-3.74) Free Thyroxine 0.95ng/dL (0.76-1.46) Prolactin 14.5ng/mL (4.0-15.2) PTH (Intact) Specimen Description Comment (.) Parathyroid Hormone (Intact) 36pg/mL (15-65) Calcium (PTH Intact) 9.3mg/dL (8.6-10.2) Creatinine (PTH Intact) 0.74mg/dL (0.76-1.27) Phosphorus (PTH Intact) 3.2mg/dL (2.5-4.5) Laboratory Tests Test 08/18/16 05:34 White Blood Count 6.7x10^3/uL (4.0-11.0) Red Blood Count 4.18x10^6/uL (4.30-5.70) Hemoglobin 13.2g/dL (13.0-17.5) Hematocrit 39.6% (39.0-53.0) Mean Corpuscular Volume 95fL (79-100) Mean Corpuscular Hemoglobin 32pg (25-35) Mean Corpuscular Hemoglobin Concent 33g/dL (31-37) Red Cell Distribution Width 13.6% (11.5-14.5) Platelet Count 383x10^3/uL (140-400) Neutrophils (%) (Auto) 57% (31-73) Lymphocytes (%) (Auto) 34% (24-48) Monocytes (%) (Auto) 8% (0-9) Eosinophils (%) (Auto) 2% (0-3) Basophils (%) (Auto) 1% (0-3) Neutrophils # (Auto) 3.8x10^3uL (1.8-7.7) Lymphocytes # (Auto) 2.3x10^3/uL (1.0-4.8) Monocytes # (Auto) 0.5x10^3/uL (0.0-1.1) Eosinophils # (Auto) 0.1x10^3/uL (0.0-0.7) Basophils # (Auto) 0.0x10^3/uL (0.0-0.2) Sodium Level 141mmol/L (136-145) Potassium Level 4.4mmol/L (3.5-5.1) Chloride Level 104mmol/L (98-107) Carbon Dioxide Level 27mmol/L (21-32) Anion Gap 10 (6-14) Blood Urea Nitrogen 11mg/dL (8-26) Creatinine 0.8mg/dL (0.7-1.3) Estimated GFR (Cockcroft-Gault) 117.0 Glucose Level 84mg/dL (70-99) Calcium Level 9.1mg/dL (8.5-10.1) Medications Current Medications Aspirin ([employer] Aspirin) 325 mg 1X ONCE PO Last administered on 08/17/16t 02:45 ; Start 08/17/16 at 02:45; Stop 08/17/16 at 02:46; Status DC Ondansetron HCl (Zofran) 4 mg PRN Q8HRS PRN IV NAUSEA/VOMITING; Start 08/17/16 at 03:00; Stop 08/18/16 at 02:59; Status DC Acetaminophen (Tylenol) 650 mg PRN Q4HRS PRN PO FEVER; Start 08/17/16 at 03:00 ; Stop 08/18/16 at 02:59; Status DC Acetaminophen (Tylenol) 325 mg PRN Q6HRS PRN PO MILD PAIN / TEMP Last administered on 08/18/16 21:03; Start 08/17/16 at 09:30 Hydralazine HCl (Apresoline) 10 mg PRN Q4HRS PRN IVP ELEVATED BP, SEE COMMENTS ; Start 08/17/16 at 09:30 Ondansetron HCl (Zofran) 4 mg PRN Q8HRS PRN IV NAUSEA/VOMITING; Start 08/17/16 at 09:30 Albuterol Sulfate (Ventolin Neb Soln) 2.5 mg PRN Q4HRS PRN NEB SHORTNESS OF BREATH; Start 08/17/16 at 09:30 Amlodipine Besylate (Norvasc) 10 mg DAILY PO Last administered on 08/18/16 08: 23; Start 08/17/16 at 11:00 Aspirin (Ecotrin) 81 mg DAILY PO Last administered on 08/18/16 08:22; Start at 11:00 Lisinopril (Prinivil) 40 mg DAILY PO Last administered on 08/18/16 08:24; Start 08/17/16 at 11:00 Info (Do NOT chart on this placeholder) 1 each PRN 1X PRN MC SEE COMMENTS; Start 08/17/16 at 12:00; Status UNV Influenza Virus Vaccine Quadrival (Fluarix Quad [id number] Syringe) 0.5 ml ONCE ONCE VAX IM Last administered on 08/17/16 21:51; Start 08/17/16 at 14:00; Stop 08/17/16 at 14:01; Status DC Gadobutrol (Gadavist) 7.5 mmol 1X ONCE IV Last administered on 08/17/16 17:45 ; Start 08/17/16 at 17:45; Stop 08/17/16 at 17:46; Status DC Dexamethasone Sodium Phosphate (Decadron) 4 mg Q6HRS IV Last administered on 15:53; Start 08/18/16 at 16:00 Active Scripts Active Aspir 81 (Aspirin) 81 Mg Tablet. 1 Tab PO DAILY Amlodipine Besylate 10 Mg Tablet 10 Mg PO DAILY Reported Lisinopril 40 Mg Tablet 1 Tab PO DAILY Vitals/I & O Vital Sign - Last 24 Hours 08/17/16 08/18/16 08/18/16 08/18/16 23:04 03:08 07:00 08:00 Temp 98.8 97.9 97.7 98.8 97.9 97.7 Pulse 52 48 65 Resp 20 20 18 B/P 144/73 117/68 130/87 Pulse Ox 99 100 100 O2 Delivery Room Air Room Air Room Air Room Air 08/18/16 08/18/16 08/18/16 08/18/16 08:23 08:24 11:00 14:52 Temp 98.1 98.4 98.1 98.4 Pulse 65 65 62 60 Resp 18 18 B/P 130/87 130/87 145/75 137/78 Pulse Ox 99 97 O2 Delivery Room Air Room Air 08/18/16 08/18/16 19:05 20:00 Temp 98.4 98.4 Pulse 95 Resp 16 B/P 134/90 Pulse Ox 96 O2 Delivery Room Air Room Air Intake and Output 08/17/16 08/17/16 08/18/16 15:00 23:00 07:00 Intake Total 330 ml Output Total 250 ml 250 ml Balance -250 ml 80 ml NIKOLAI RAHMAN MD Aug 18, 2016 22:58
[2016-08-18 23:00] VITALS: BP 162/95
[2016-08-19 02:07] LABS: ACTH 13.9 pg/mL (7.2-63.3)
[2016-08-19 03:05] VITALS: BP 134/88
[2016-08-19 05:20] LABS: BASO % 0 % (0-3); EOS % 0 % (0-3); HEMATOCRIT 40.8 % (39.0-53.0); HEMOGLOBIN 13.6 g/dL (13.0-17.5); LYMPH # 1.4 x10^3/uL (1.0-4.8); LYMPH % 19 % (24-48); MEAN CORPUSCULAR HEMOGLOBIN 32 pg (25-35); MEAN CORPUSCULAR HGB CONC 33 g/dL (31-37); MEAN CORPUSCULAR VOLUME 96 fL (79-100); MONO % 6 % (0-9); NEUT % 75 % (31-73); PLATELET COUNT 359 x10^3/uL (140-400); RED BLOOD COUNT 4.25 x10^6/uL (4.30-5.70); RED CELL DISTRIBUTION WIDTH 13.5 % (11.5-14.5); WHITE BLOOD COUNT 7.4 x10^3/uL (4.0-11.0)
[2016-08-19] MEDS: DEXAMETHASONE SOD PHOS 4 MG/ML VIAL IV SCH ×2 (06:04→11:15)
[2016-08-19 06:17] LABS: CALCIUM 9.7 mg/dL (8.5-10.1); CREATININE 0.9 mg/dL (0.7-1.3); GFR 102.2; POTASSIUM 4.6 mmol/L (3.5-5.1)
[2016-08-19 07:00] VITALS: BP 125/83
[2016-08-19] MEDS: LISINOPRIL 40 MG TABLET. PO SCH (07:58)
[2016-08-19] MEDS: ASPIRIN ENTERIC COATED 81 MG TABLET.DR. PO SCH (07:58)
[2016-08-19] MEDS: AMLODIPINE BESYLATE 10 MG TABLET PO SCH (07:59)
--- NOTE | 2016-08-19 08:52 | RAD ---
EXAM: Carotid Doppler sonogram. HISTORY: Transient ischemic attack. TECHNIQUE: Doppler sonographic evaluation of the neck was performed and static images are submitted for review. FINDINGS: There is intimal thickening within the right greater than left common carotid arteries and mild atrophy plaque within the right greater than left internal and external carotid arteries. The peak systolic velocity within the right common carotid artery is 124 cm/sec. The peak systolic velocities within the right proximal, mid and distal internal carotid artery are 87 cm/sec, 95 cm/sec, and 74 cm/sec, respectively. There is a tardus parvus waveform within the proximal right internal carotid artery. The peak systolic velocity within the left common carotid artery is 203 cm/sec. The peak systolic velocities within the left proximal, mid and distal internal carotid artery are 79 cm/sec, 59 cm/sec, and 64 cm/sec, respectively. There is normal antegrade flow within both vertebral arteries. IMPRESSION: 1. No Doppler evidence of elevated peak systolic velocities within the internal carotid arteries to suggest hemodynamically significant stenosis. 2. Tardus parvus waveform within the proximal right ICA. Despite a normal peak systolic velocity, this waveform can be seen distal to hemodynamically significant stenosis. CT angiography or MR angiography may be useful for characterization if clinically feasible. 3. Mild intimal thickening involving the right greater than left common carotid arteries and atherosclerotic plaque within the right greater and left internal and external carotid arteries. PQRS Statement: NASCET criteria were utilized for this exam.
[2016-08-19 11:00] VITALS: BP 137/79
--- NOTE | 2016-08-19 11:33 | PDOC ---
PROGRESS NOTES Chief Complaint Chief Complaint CC: right arm tingling A/P HTN urgency better. Left arm tinging resolved Adneral tumor 3cm incidental, right Macroadenoma pituitary 3 cm Plan ophthalmology consult BP controlled NS consult noted, dedicated Pituatry MRI Renal duplex US resutls reviewed Consult Nephrology labs reviwed Echo old 2014 normal EF, No need for repeat one. Pt's brother is in critical condition, would like to be there, wants to see Dr Leavitt in clinic. History of Present Illness History of Present Illness no fever no chills no vision problems. Vitals Vitals Vital Signs Date Time Temp Pulse Resp B/P Pulse Ox O2 Delivery O2 Flow Rate FiO2 08/19/16 11:00 98.6 65 16 137/79 97 Room Air 98.6 Physical Exam General: Alert, Oriented X3, Cooperative, No acute distress Heart: Regular rate, Normal S1, Normal S2 Lungs: Clear, Wheezing Abdomen: Normal bowel sounds, Soft, No tenderness Extremities: No edema, Normal pulses Skin: No significant lesion Labs LABS Laboratory Tests Test 08/19/16 04:00 White Blood Count 7.4x10^3/uL (4.0-11.0) Red Blood Count 4.25x10^6/uL (4.30-5.70) Hemoglobin 13.6g/dL (13.0-17.5) Hematocrit 40.8% (39.0-53.0) Mean Corpuscular Volume 96fL (79-100) Mean Corpuscular Hemoglobin 32pg (25-35) Mean Corpuscular Hemoglobin Concent 33g/dL (31-37) Red Cell Distribution Width 13.5% (11.5-14.5) Platelet Count 359x10^3/uL (140-400) Neutrophils (%) (Auto) 75% (31-73) Lymphocytes (%) (Auto) 19% (24-48) Monocytes (%) (Auto) 6% (0-9) Eosinophils (%) (Auto) 0% (0-3) Basophils (%) (Auto) 0% (0-3) Neutrophils # (Auto) 5.5x10^3uL (1.8-7.7) Lymphocytes # (Auto) 1.4x10^3/uL (1.0-4.8) Monocytes # (Auto) 0.4x10^3/uL (0.0-1.1) Eosinophils # (Auto) 0.0x10^3/uL (0.0-0.7) Basophils # (Auto) 0.0x10^3/uL (0.0-0.2) Sodium Level 140mmol/L (136-145) Potassium Level 4.6mmol/L (3.5-5.1) Chloride Level 103mmol/L (98-107) Carbon Dioxide Level 27mmol/L (21-32) Anion Gap 10 (6-14) Blood Urea Nitrogen 11mg/dL (8-26) Creatinine 0.9mg/dL (0.7-1.3) Estimated GFR (Cockcroft-Gault) 102.2 Glucose Level 111mg/dL (70-99) Calcium Level 9.7mg/dL (8.5-10.1) Assessment and Plan Assessmemt and Plan Problems Medical Problems: (1) Numbness on right side Status: Acute (2) Right hand weakness Status: Acute Problems: Comment Review of Relevant I have reviewed the following items brent (where applicable) has been applied. Labs Laboratory Tests Test 08/17/16 15:40 08/18/16 05:34 08/19/16 04:00 Sodium Level 141mmol/L (136-145) 141mmol/L (136-145) 140mmol/L (136-145) Potassium Level 4.3mmol/L (3.5-5.1) 4.4mmol/L (3.5-5.1) 4.6mmol/L (3.5-5.1) Chloride Level 106mmol/L (98-107) 104mmol/L (98-107) 103mmol/L (98-107) Carbon Dioxide Level 27mmol/L (21-32) 27mmol/L (21-32) 27mmol/L (21-32) Anion Gap 8 (6-14) 10 (6-14) 10 (6-14) Blood Urea Nitrogen 11mg/dL (8-26) 11mg/dL (8-26) 11mg/dL (8-26) Creatinine 0.9mg/dL (0.7-1.3) 0.8mg/dL (0.7-1.3) 0.9mg/dL (0.7-1.3) Estimated GFR (Non- 96 (>59) Estimated GFR (Cockcroft-Gault) 102.2 117.0 102.2 Glucose Level 97mg/dL (70-99) 84mg/dL (70-99) 111mg/dL (70-99) Calcium Level 9.2mg/dL (8.5-10.1) 9.1mg/dL (8.5-10.1) 9.7mg/dL (8.5-10.1) Ionized Calcium 1.22mmol/L (1.13-1.32) Phosphorus Level 3.1mg/dL (2.6-4.7) Albumin 3.1g/dL (3.4-5.0) EGFR 111 (>59) Thyroid Stimulating Hormone (TSH) 1.315uIU/mL (0.358-3.74) Free Thyroxine 0.95ng/dL (0.76-1.46) Prolactin 14.5ng/mL (4.0-15.2) PTH (Intact) Specimen Description Comment (.) Parathyroid Hormone (Intact) 36pg/mL (15-65) Calcium (PTH Intact) 9.3mg/dL (8.6-10.2) Creatinine (PTH Intact) 0.74mg/dL (0.76-1.27) Phosphorus (PTH Intact) 3.2mg/dL (2.5-4.5) ACTH Baseline 13.9pg/mL (7.2-63.3) White Blood Count 6.7x10^3/uL (4.0-11.0) 7.4x10^3/uL (4.0-11.0) Red Blood Count 4.18x10^6/uL (4.30-5.70) 4.25x10^6/uL (4.30-5.70) Hemoglobin 13.2g/dL (13.0-17.5) 13.6g/dL (13.0-17.5) Hematocrit 39.6% (39.0-53.0) 40.8% (39.0-53.0) Mean Corpuscular Volume 95fL (79-100) 96fL (79-100) Mean Corpuscular Hemoglobin 32pg (25-35) 32pg (25-35) Mean Corpuscular Hemoglobin Concent 33g/dL (31-37) 33g/dL (31-37) Red Cell Distribution Width 13.6% (11.5-14.5) 13.5% (11.5-14.5) Platelet Count 383x10^3/uL (140-400) 359x10^3/uL (140-400) Neutrophils (%) (Auto) 57% (31-73) 75% (31-73) Lymphocytes (%) (Auto) 34% (24-48) 19% (24-48) Monocytes (%) (Auto) 8% (0-9) 6% (0-9) Eosinophils (%) (Auto) 2% (0-3) 0% (0-3) Basophils (%) (Auto) 1% (0-3) 0% (0-3) Neutrophils # (Auto) 3.8x10^3uL (1.8-7.7) 5.5x10^3uL (1.8-7.7) Lymphocytes # (Auto) 2.3x10^3/uL (1.0-4.8) 1.4x10^3/uL (1.0-4.8) Monocytes # (Auto) 0.5x10^3/uL (0.0-1.1) 0.4x10^3/uL (0.0-1.1) Eosinophils # (Auto) 0.1x10^3/uL (0.0-0.7) 0.0x10^3/uL (0.0-0.7) Basophils # (Auto) 0.0x10^3/uL (0.0-0.2) 0.0x10^3/uL (0.0-0.2) Laboratory Tests Test 08/19/16 04:00 White Blood Count 7.4x10^3/uL (4.0-11.0) Red Blood Count 4.25x10^6/uL (4.30-5.70) Hemoglobin 13.6g/dL (13.0-17.5) Hematocrit 40.8% (39.0-53.0) Mean Corpuscular Volume 96fL (79-100) Mean Corpuscular Hemoglobin 32pg (25-35) Mean Corpuscular Hemoglobin Concent 33g/dL (31-37) Red Cell Distribution Width 13.5% (11.5-14.5) Platelet Count 359x10^3/uL (140-400) Neutrophils (%) (Auto) 75% (31-73) Lymphocytes (%) (Auto) 19% (24-48) Monocytes (%) (Auto) 6% (0-9) Eosinophils (%) (Auto) 0% (0-3) Basophils (%) (Auto) 0% (0-3) Neutrophils # (Auto) 5.5x10^3uL (1.8-7.7) Lymphocytes # (Auto) 1.4x10^3/uL (1.0-4.8) Monocytes # (Auto) 0.4x10^3/uL (0.0-1.1) Eosinophils # (Auto) 0.0x10^3/uL (0.0-0.7) Basophils # (Auto) 0.0x10^3/uL (0.0-0.2) Sodium Level 140mmol/L (136-145) Potassium Level 4.6mmol/L (3.5-5.1) Chloride Level 103mmol/L (98-107) Carbon Dioxide Level 27mmol/L (21-32) Anion Gap 10 (6-14) Blood Urea Nitrogen 11mg/dL (8-26) Creatinine 0.9mg/dL (0.7-1.3) Estimated GFR (Cockcroft-Gault) 102.2 Glucose Level 111mg/dL (70-99) Calcium Level 9.7mg/dL (8.5-10.1) Medications Current Medications Aspirin (Yasmin Aspirin) 325 mg 1X ONCE PO Last administered on 08/17/16t 02:45 ; Start 08/17/16 at 02:45; Stop 08/17/16 at 02:46; Status DC Ondansetron HCl (Zofran) 4 mg PRN Q8HRS PRN IV NAUSEA/VOMITING; Start 08/17/16 at 03:00; Stop 08/18/16 at 02:59; Status DC Acetaminophen (Tylenol) 650 mg PRN Q4HRS PRN PO FEVER; Start 08/17/16 at 03:00 ; Stop 08/18/16 at 02:59; Status DC Acetaminophen (Tylenol) 325 mg PRN Q6HRS PRN PO MILD PAIN / TEMP Last administered on 08/18/16 21:03; Start 08/17/16 at 09:30 Hydralazine HCl (Apresoline) 10 mg PRN Q4HRS PRN IVP ELEVATED BP, SEE COMMENTS ; Start 08/17/16 at 09:30 Ondansetron HCl (Zofran) 4 mg PRN Q8HRS PRN IV NAUSEA/VOMITING; Start 08/17/16 at 09:30 Albuterol Sulfate (Ventolin Neb Soln) 2.5 mg PRN Q4HRS PRN NEB SHORTNESS OF BREATH; Start 08/17/16 at 09:30 Amlodipine Besylate (Norvasc) 10 mg DAILY PO Last administered on 08/19/16 07: 59; Start 08/17/16 at 11:00 Aspirin (Ecotrin) 81 mg DAILY PO Last administered on 08/19/16 07:58; Start at 11:00 Lisinopril (Prinivil) 40 mg DAILY PO Last administered on 08/19/16 07:58; Start 08/17/16 at 11:00 Info (Do NOT chart on this placeholder) 1 each PRN 1X PRN MC SEE COMMENTS; Start 08/17/16 at 12:00; Status UNV Influenza Virus Vaccine Quadrival (Fluarix Quad [id number] Syringe) 0.5 ml ONCE ONCE VAX IM Last administered on 08/17/16 21:51; Start 08/17/16 at 14:00; Stop 08/17/16 at 14:01; Status DC Gadobutrol (Gadavist) 7.5 mmol 1X ONCE IV Last administered on 08/17/16 17:45 ; Start 08/17/16 at 17:45; Stop 08/17/16 at 17:46; Status DC Dexamethasone Sodium Phosphate (Decadron) 4 mg Q6HRS IV Last administered on 15:53; Start 08/18/16 at 16:00 Active Scripts Active Aspir 81 (Aspirin) 81 Mg Tablet. 1 Tab PO DAILY Amlodipine Besylate 10 Mg Tablet 10 Mg PO DAILY Reported Lisinopril 40 Mg Tablet 1 Tab PO DAILY Vitals/I & O Vital Sign - Last 24 Hours 08/18/16 08/18/16 08/18/16 08/18/16 14:52 19:05 20:00 23:00 Temp 98.4 98.4 98.2 98.4 98.4 98.2 Pulse 60 95 67 Resp 18 16 16 B/P 137/78 134/90 162/95 Pulse Ox 97 96 97 O2 Delivery Room Air Room Air Room Air Room Air 08/19/16 08/19/16 08/19/16 08/19/16 03:05 07:00 07:58 07:59 Temp 98.0 98.3 98.0 98.3 Pulse 65 71 65 65 Resp 16 16 B/P 134/88 125/83 134/88 134/88 Pulse Ox 100 100 O2 Delivery Room Air Room Air 08/19/16 08/19/16 08:00 11:00 Temp 98.6 98.6 Pulse 65 Resp 16 B/P 137/79 Pulse Ox 97 O2 Delivery Room Air Room Air Intake and Output 08/18/16 08/18/16 08/19/16 15:00 23:00 07:00 Intake Total 200 ml 700 ml Output Total 300 ml 350 ml Balance -300 ml 200 ml 350 ml FROYLAN PEACOCK MD Aug 19, 2016 11:33
[2016-08-19] MEDS ORDERED: AMLO10TA2 PO (13:01)
[2016-08-19] MEDS ORDERED: ASPI81TA9 PO (13:01)
[2016-08-19] MEDS ORDERED: LISI40TA PO (13:01)
--- NOTE | 2016-08-19 20:27 | DS ---
DATE OF DISCHARGE: 08/19/2016 DISCHARGE DIAGNOSES: 1. Hypertensive urgency, resolved. 2. Left arm tingling likely due to hypertensive urgency. 3. Adrenal tumor 3 cm. 4. Microadenoma pituitary 3 cm. BRIEF HOSPITAL COURSE: This 66-year-old male patient admitted to the hospital for right upper extremity tingling, numbness. At the time of admission, the patient was in hypertensive urgency and a systolic blood pressure more than 220. The patient was admitted to the hospital for similar complaints exactly 1 year ago. At that time, he had evaluation by cardiology, he was sent home with blood pressure medications. He denies any noncompliance; however, on CT of the head positive for pituitary mass, it is around 3 cm compared to 1 cm bigger than earlier imaging studies which were done 1 year ago. He denies any visual changes, however, has some blurring of vision. No diplopia. Patient was evaluated by Neurology and his repeat MRI showed the same findings. Also he was evaluated by Dr. Leavitt who would like to see him in the clinic and no further immediate interventions are needed at this time. He had a workup for questionable CVA as well as Doppler carotids, did not show any acute signs of obstruction, however, patient found to have a right adrenal mass which is around 3.5 cm, which is an incidental finding. I have ordered some blood work for secondary hypertension such as calcium, phosphorus, albumin, TSH, free T4, prolactin intact PTH all are within baseline, however, 24-hour urine Metanephrine are still pending. He has been educated to follow up with Dr. Leavitt and patient was sent home in stable condition and scripts. Patient's brother is in critical care condition, he would like to see him; so given his acute family emergency, I sent him home and he will see Dr. Leavitt in the next couple of days. DISCHARGE EXAMINATION: GENERAL: Alert, oriented x 3. HEART: S1, S2 present. LUNGS: Clear to auscultation. ABDOMEN: Soft, nontender, no organomegaly. EXTREMITIES: No edema. DISCHARGE DISPOSITION: Home. DISCHARGE CONDITION: Stable. DISCHARGE MEDICATIONS: Reviewed and reconciled. Please see MRAD. DISCHARGE FOLLOWUP: With Dr. Leavitt and primary care as scheduled. Total time spent for discharge is 35 minutes for patient education, counseling and coordination of care. FROYLAN PEACOCK MD DR: Patricia JOB#: [id number] / [id number] MARNI
[2016-08-23 09:22] LABS: METANEPH UR 85 ug/L (Undefined); NORMETANEPHRINES UR 83 ug/L (Undefined); TOTAL METANEPHRINES UR 132 ug/24 hr (45-290)
== END 2016-08-19 14:00 | disposition home or self-care (01) | DRG 305 ==
LOC: ER 01:07 → 6 SOUTH 02:00
PROVIDERS: ADMIT Internal Medicine; ATTEND Internal Medicine
DX: I16.0 Hypertensive urgency (principal); Z87.891 Personal history of nicotine dependence; D35.2 Benign neoplasm of pituitary gland; E27.9 Disorder of adrenal gland, unspecified; I11.9 Hypertensive heart disease without heart failure; Z96.642 Presence of left artificial hip joint; I73.9 Peripheral vascular disease, unspecified; K59.00 Constipation, unspecified; R13.10 Dysphagia, unspecified; Z82.49 Family history of ischemic heart disease and other diseases of the circulatory system; Z79.82 Long term (current) use of aspirin; Z86.73 Personal history of transient ischemic attack (TIA), and cerebral infarction without residual deficits; Z83.3 Family history of diabetes mellitus; Z88.1 Allergy status to other antibiotic agents; Z88.5 Allergy status to narcotic agent
CPT/HCPCS: 36415; 70450; 70553; 71020; 76770; 80048; 80069; 82024; 82310; 83970; 84146; 84439; 84443; 85027; 90686; 93005; 93880; 94250; G0481; J1100; 99285-25; A9585

== ENCOUNTER → 2016-09-04 | Outpatient (CLI) | payer MEDICARE, MEDICAID ==
[2016-08-19 11:00] VITALS: BP 137/79
[~2016-09-04] MED LIST changes: +ASPI81TA9 PO; +IOHEXOL 240 MG/ML 50ML VIAL. PO ONE; +IOHEXOL 300 MG/ML 75 ML VIAL IV ONE
--- NOTE | 2016-09-04 09:13 | RAD ---
INDICATION: LEFT HIP PAIN. PREVIOUS LEFT HIP REPLACEMENT COMPARISON: None. IMPRESSION: Left hip: 2 views obtained. Left hip arthroplasty changes without periprosthetic fracture or dislocation. Calcific atherosclerosis. There is a small amount of heterotopic ossification adjacent to proximal femur.
--- NOTE | 2016-09-04 13:18 | RAD ---
CT of the abdomen and pelvis with and without contrast, 09/04/2016: History: Renal cyst Multidetector CT imaging was performed prior to and following an IV bolus injection of iodinated contrast material. Postcontrast contrast images were obtained through the kidneys in arterial and portal venous phases and through the entire abdomen and pelvis in an excretory phase. Oral contrast material was also given for GI tract opacification. There are several well-defined lesions in the liver. The largest of these lies laterally in the right lobe. It measures 2.7 cm, and demonstrates smooth margins and is of low density compatible with a cyst. 3 other small subcentimeter lesions are too small to definitively characterize, but are also probably cysts. The liver is otherwise unremarkable. No gallbladder abnormality is seen. No pancreatic abnormality is detected. The spleen is of normal size. There are bilateral low density adrenal nodules. The left nodule measures 3 cm, while the right nodule measures 2.7 cm. They demonstrate low internal CT numbers on the precontrast scans in a range compatible with benign adenomas. They due enhance on the postcontrast scans indicating that these are not simple cysts. They have not changed significantly in size since 07/03/2015 study. No renal mass is identified. The renal collecting systems and ureters are not dilated. Artifacts arising from a left hip prosthesis partially degrade image quality at the lower pelvic level. No bladder abnormality is detected. There is moderate aortoiliac calcific plaquing without evidence of aneurysm. No abdominal or pelvic adenopathy is seen. The bowel loops are not dilated. The appendix is unremarkable. No free fluid or free air is evident in the abdomen or pelvis. Moderate degenerative disc disease is present at L5-S1. IMPRESSION: 1. No urinary tract abnormality is detected. 2. Stable bilateral low density adrenal nodules compatible with benign adenomas. 3. Small hepatic cysts.
== END | disposition home or self-care (01) ==
LOC: CT 07:27
PROVIDERS: ATTEND Neurological Surgery
DX: N28.1 Cyst of kidney, acquired (principal); K76.89 Other specified diseases of liver; M51.37 Other intervertebral disc degeneration, lumbosacral region; I70.0 Atherosclerosis of aorta; Z96.652 Presence of left artificial knee joint
CPT/HCPCS: 73502; 74178; Q9966; Q9967

== ENCOUNTER → 2016-09-10 | Outpatient (CLI) | payer MEDICARE, MEDICAID ==
[2016-08-19 11:00] VITALS: BP 137/79
[~2016-09-10] MED LIST changes: -IOHEXOL 240 MG/ML 50ML VIAL. PO ONE; -IOHEXOL 300 MG/ML 75 ML VIAL IV ONE
[2016-09-10 08:58] LABS: FREE T4 0.88 ng/dL (0.76-1.46)
[2016-09-10 19:11] LABS: CORTISOL AM 13.6 ug/dL (6.2-19.4); ESTRADIOL LEVEL 16.8 pg/mL (7.6-42.6); FSH 5.7 mIU/mL (1.5-12.4); LUTEINIZING HORMONE 2.8 mIU/mL (1.7-8.6); PROLACTIN 12.5 ng/mL (4.0-15.2); TESTOSTERONE TOTAL 374 ng/dL (348-1197)
[2016-09-11 18:16] LABS: ACTH 9.6 pg/mL (7.2-63.3)
[2016-09-12 06:18] LABS: GROWTH HORMONE 0.4 ng/mL (0.0-10.0)
== END | disposition home or self-care (01) ==
LOC: LAB 07:36
DX: E23.7 Disorder of pituitary gland, unspecified (principal)
CPT/HCPCS: 36415; 82024; 82533; 82670; 83001; 83002; 83003; 84146; 84305; 84403; 84439; 84443

== ENCOUNTER → 2017-02-15 | Outpatient (CLI) | payer MEDICARE, MEDICAID ==
[~2017-02-15] MED LIST changes: +ASPI-612 PO; -ASPI81TA9 PO
== END | disposition home or self-care (01) ==
LOC: LAB 07:51
PROVIDERS: ATTEND Pediatrics
DX: E78.2 Mixed hyperlipidemia (principal)
CPT/HCPCS: 36415; 80061

== ENCOUNTER → 2017-02-15 | Outpatient (CLI) | payer MEDICARE, MEDICAID ==
[2017-02-15 09:08] LABS: CREATININE 0.9 mg/dL (0.7-1.3); GFR 101.8; POTASSIUM 3.9 mmol/L (3.5-5.1)
[2017-02-15 09:23] LABS: FREE T4 0.9 ng/dL (0.76-1.46)
[2017-02-15 21:09] LABS: LUTEINIZING HORMONE 4.3 mIU/mL (1.7-8.6); PROLACTIN 9.8 ng/mL (4.0-15.2); TESTOSTERONE TOTAL 458 ng/dL (264-916)
[2017-02-15 23:09] LABS: CORTISOL AM 17.5 ug/dL (6.2-19.4)
[2017-02-16 17:18] LABS: ACTH 6.1 pg/mL (7.2-63.3)
== END | disposition home or self-care (01) ==
LOC: LAB 07:44
PROVIDERS: ATTEND Pediatrics Pediatric Cardiology
DX: D35.2 Benign neoplasm of pituitary gland (principal)
CPT/HCPCS: 36415; 80048; 82024; 82533; 83002; 84146; 84403; 84439; 84443

== ENCOUNTER 2018-02-08 10:10 | Emergency (ER) | payer MEDICARE, MEDICAID ==
[2018-02-08] MEDS ORDERED: LIDOCAINE 1% Multi-Dose 50 ML VIAL. INJ (13:00)
[2018-02-08] MEDS: LIDOCAINE 1% PF 30 ML VIAL. INJ (13:02)
== END 2018-02-08 13:57 | disposition home or self-care (01) ==
LOC: ER 10:10
DX: L02.212 Cutaneous abscess of back [any part, except buttock and flank] (principal); I10 Essential (primary) hypertension; Z88.5 Allergy status to narcotic agent; Z88.1 Allergy status to other antibiotic agents
CPT/HCPCS: 10060; 99284-25